=== PATIENT | male | born 1940 | race Caucasian/White ===

== ENCOUNTER 2025-01-30 11:37 | Inpatient (IN) | payer MEDICARE, MEDICAID, SELFPAY ==
[2025-01-30] VITALS (8 sets, daily range): BP systolic 119–156; BP diastolic 49–78; PULSE 76–99; RESP 14–21; TEMP 36.2–36.7; O2SAT 92–100; BMI 27.6; BMI 26.5
--- NOTE | ~2025-01-30 | XR_ITS ---
CLINICAL HISTORY: suspect CHF 2 view chest x-ray Comparison: None Findings: There is central vascular and interstitial prominence. Patchy ground-glass density bilaterally. Trace bilateral effusions. Cardiac and mediastinal contours are within normal limits. No acute fracture. IMPRESSION: Moderate interstitial edema with questionable bilateral infiltrate. This document has been electronically signed by: Mc Harper MD on 01/30/2025 14:07:01
--- NOTE | 2025-01-30 12:23 | PC.NURSE ---
Patient presents from home via EMS. Yemeni speaking. Placed on vehicle monitor technician and NSR noted. Lungs with BBR. Respirations even and non-labored. patient c/o cough. Abdomen soft, non-tender with positive bowel sounds. Positive pedal pulses with LE edema noted.
--- NOTE | 2025-01-30 12:50 | ED.GENADULT ---
HPI - General Adult General Chief complaint: General Medical Stated complaint: SORE THROAT/COUGH WHILE LYING DOWN PER EMS Time Seen by Provider: 01/30/25 12:50 Source: patient Mode of arrival: ambulatory Limitations: no limitations History of Present Illness ED Provider: John Escamilla DO HPI narrative: 84-year-old male with no significant past medical or surgical history (has not seen a primary care provider since before COVID-19) presents to the emergency department due to a nonproductive for the last 3 days without any additional symptoms including chest pain, difficulty breathing, exertional symptoms, abdominal pain, nausea, vomiting, diarrhea was, sore throat, headache or dizziness. The patient denies history of CHF or known murmur. He denies sputum production or hemoptysis. Related Data Home Medications ?Medication ?Instructions ?Recorded ?Confirmed blood sugar diagnostic (OneTouch 08/21/21 Ultra Test strips) lancets (OneTouch UltraSoft 08/21/21 Lancets) Allergies Allergy/AdvReac Type Severity Reaction Status Date / Time No Known Allergies Allergy Verified 01/30/25 12:00 [No Known Allergies*] Review of Systems Review of Systems: Yes all other systems are reviewed and are negative [facility] Social History Social History (System 01/27/25 @ 13:43 by Noris Workman) Advance Directives: No Advance Directives Information Provided: No Physical Exam ED Vital Signs: Vital Signs - 24 hr 01/30/25 11:49 01/30/25 11:56 01/30/25 11:56 Temperature 98.1 F 97.2 F Pulse Rate 99 99 76 Respiratory Rate 18 18 18 Blood Pressure 156/70 H 152/60 H 141/54 H Pulse Oximetry 99 98 93 Oxygen Delivery Method Room Air Room Air Room Air 01/30/25 14:00 01/30/25 14:17 Temperature Pulse Rate 90 Respiratory Rate 14 Blood Pressure 147/58 H 147/58 H Pulse Oximetry 92 Oxygen Delivery Method Room Air BMI result Body Mass Index 27.6 Constitutional: Alert, oriented, speaking in full sentences HEENT: Normocephalic, atraumatic. Moist mucous membranes Eyes: PERRL, EOMI Neck: Supple, nontender , positive JVD Chest: No chest wall tenderness Respiratory: bibasilar crackles on inspiration, no increased work of breathing, 2+ lower extremity edema bilaterally Cardio: Regular rate and rhythm, holosystolic murmur, 2+ radial and DP pulses symmetrically GI: Soft, nondistended, nontender Back: Normal range of motion, nontender Skin: No rash, no lesions Neuro: Alert and oriented to person, place and time, moves all 4 extremities, no focal deficits Extremities: No tenderness, full range of motion Psych: Calm, alert and cooperative, appropriate behavior Medications Administered Discontinued Medications Generic Name Dose Route Start Last Admin Trade Name Dwayneq PRN Reason Stop Dose Admin Furosemide 20 mg 01/30/25 14:05 01/30/25 14:17 Furosemide 20 Mg/2 Ml Vial IVPUSH 01/30/25 14:06 20 mg ONCE ONE Administration Protocol Medical Decision Making Medical Decision Making [facility] Narrative: presenting with a nonproductive cough which may be secondary to a virus. There are no overt findings clinically for bacterial pneumonia. The patient does have clinical findings consistent with CHF exacerbation as well as a murmur on exam. We will further evaluate and likely treat with diuresis. I do not suspect ACS in the absence of exertional symptoms or chest discomfort. Labs and chest x-ray consistent with CHF exacerbation. Discussed with patient who agrees with plan. He will require an echocardiogram and diuresis. Started with 20 mg IV furosemide due to being naive to diuretics and no significant renal impairment. Although uncertain, I do not suspect pneumonia based on symptoms and chest x-ray. Case discussed with hospitalist who agrees with plan for admission. Of note, the patient does have anemia with hemoglobin of 8.4 with no prior for comparison but no reports of blood loss. Admission/Observation Consideration of admission/observation: Escalation of care including admission/observation considered Lab Data [facility] Lab Attestation statement: I reviewed the patient's lab results. 01/30/25 13:28 01/30/25 13:28 Labs: Lab Results 01/30/25 01/30/25 Range/Units 13:14 13:28 WBC 4.8 (4.8-10.8) X10*3/uL RBC 3.29 L (4.60-5.80) X10*6/uL Hgb 8.4 L (14.0-18.0) g/dl Hct 26.8 L (42.0-52.0) % MCV 81.5 (80.0-98.0) fL MCH 25.5 L (27.0-33.0) pg MCHC 31.3 (31.0-36.0) g/dl RDW 13.8 (11.0-16.0) % Plt Count 210 (160-400) X10*3/uL MPV 10.3 (9.4-12.4) fL Immature Gran % (Auto) 0.2 (0.0-0.4) % Neut % (Auto) 84.0 H (45-73) % Lymph % (Auto) 7.3 L (20-40) % [place]oval % (Auto) 7.3 (2-11) % Eos % (Auto) 0.2 (0-4) % Baso % (Auto) 1.0 (0-2) % Lymph # (Auto) 0.4 L (1.2-4.9) X10*3/uL [place] # (Auto) 0.4 (0.1-1.2) X10*3/uL Eos # (Auto) 0.0 (0.0-0.4) X10*3/uL Baso # (Auto) 0.1 (0.0-0.2) X10*3/uL Abs Immat Gran (auto) 0.01 (0.00-0.03) X10*3/uL Absolute Neuts (auto) 4.0 (2.0-8.3) x10*3/uL Absolute Nucleated RBC 0.000 (0.0-0.012) X10*3/uL Nucleated RBC % (auto) 0.0 (0.0-0.2) /100WBC Sodium 138 (135-145) mmol/L Potassium 4.3 (3.3-5.1) mmol/L Chloride 106 (96-108) mmol/L Carbon Dioxide 20 L (22-29) mmol/L Anion Gap 16 (12-20) BUN 24 H (9-16) mg/dL Creatinine 1.05 (0.5-1.4) mg/dL Estim Creat Clear Calc 53.1 Estimated GFR > 60 Random Glucose 117 H (60-115) mg/dL Calcium 8.3 L (8.4-10.2) mg/dL B-Natriuretic Peptide 2225 H (<100) pg/mL Influenza Type A (PCR) NEGATIVE (Negative) Influenza Type B (PCR) NEGATIVE (Negative) RSV RNA Qual (PCR) NEGATIVE (Negative) SARS-CoV-2 RNA (RT-PCR) NEGATIVE (Negative) S. pyogenes GrpA SHANNAN Negative (Negative) Independent Interpretation I performed an independent interpretation of an: EKG and Plain X-Ray (Chest x-ray per my independent interpretation shows bilateral pulmonary edema and small pleural effusions) Interpretation: Normal sinus rhythm at 87 beats per minute, normal axis, borderline prolonged QTC, some subtle ST depression in the anterior lateral leads is similar compared to prior dated 02/26/2018. Discharge Plan Discharge Clinical Impression: CHF exacerbation, Anemia Patient Disposition: Admitted As Inpatient Prescriptions: No Action (DME) OneTouch Ultra Test Strip See Rx Instructions .Route Rx Instructions: As directed-to test blood sugar Once a day (DME) lancets [OneTouch UltraSoft Lancets] Misc See Rx Instructions .Route Rx Instructions: As directed-to test blood sugar Once a day Print Language: Latvian
--- NOTE | 2025-01-30 13:22 | ECG_ITS ---
Test Reason : Dyspnea Blood Pressure : */* mmHG Vent. 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
[2025-01-30 13:28] LABS: IDNOW Serial# 55D5AD1C; Strep A Nucleic Acid Negative (Negative)
[2025-01-30 13:34] LABS: Basophils Absolute Auto 0.1 X10*3/uL (0.0-0.2); Eosinophils Percent Auto 0.2 % (0-4); Hematocrit 26.8 % (42.0-52.0); Hemoglobin 8.4 g/dl (14.0-18.0); Imm Gran Abs Auto 0.01 X10*3/uL (0.00-0.03); Imm Gran Pct Auto 0.2 % (0.0-0.4); Lymphocytes Absolute Auto 0.4 X10*3/uL (1.2-4.9); Lymphocytes Percent Auto 7.3 % (20-40); MANUAL DIFF FLAG NO; Mean Corpuscular HGB Conc 31.3 g/dl (31.0-36.0); Mean Corpuscular Hemoglobin 25.5 pg (27.0-33.0); Mean Corpuscular Volume 81.5 fL (80.0-98.0); Mean Platelet Volume 10.3 fL (9.4-12.4); Monocytes Absolute Auto 0.4 X10*3/uL (0.1-1.2); Monocytes Percent Auto 7.3 % (2-11); Platelet Count 210 X10*3/uL (160-400); Red Blood Count 3.29 X10*6/uL (4.60-5.80); Red Cell Distribution Width 13.8 % (11.0-16.0); White Blood Count 4.8 X10*3/uL (4.8-10.8)
[2025-01-30 13:48] LABS: Anion Gap 16 (12-20); Blood Urea Nitrogen 24 mg/dL (9-16); Calcium 8.3 mg/dL (8.4-10.2); Carbon Dioxide 20 mmol/L (22-29); Chloride 106 mmol/L (96-108); Creatinine Clr Calc Pharmacy 53.1; Estimated Glomerular Filt Rate > 60; Glucose Random 117 mg/dL (60-115); Potassium 4.3 mmol/L (3.3-5.1); Sodium 138 mmol/L (135-145)
[2025-01-30 13:56] LABS: B Type Natriuretic Peptide 2225 pg/mL (<100)
[2025-01-30 14:00] LABS: Influenza A PCR NEGATIVE (Negative); Influenza B PCR NEGATIVE (Negative); Resp Syncy Virus RNA Qual PCR NEGATIVE (Negative); SARS COV2 PCR INHOUSE NEGATIVE (Negative)
[2025-01-30] MEDS: Furosemide 20 MG/2 ML VIAL IVPUSH (14:17)
--- NOTE | 2025-01-30 14:41 | PM.IMHP ---
History of Present Illness Date of Service: 01/30/25 Attending physician on admission: Daphne Hare Chief Complaint: SOB Pt is an 84-year-old primarily Kittitian-speaking male without any known significant PMH, has not followed with a doctor since before COVID, not on home meds who presents to the ED with with increased SOB, MORALES, lower leg edema, and nonproductive cough for the past 3 days. Pt also reports has been unable to lie flat on his back or get sleep during this time as he gets SOB and a dry cough. Especially has SOB/MORALES with going upstairs. Reports can not even walk into the kitchen without having to rest. Pt any known past medical diagnoses or being on any prescription medications. Has not been to see a PCP since before COVID. Denies chest pain/pressure, palpitations. No fever or chills. Denies nausea, vomiting, abdominal pain. ? In the ED pt was tachycardic up to 99, and mildly hypertensive up to 156/70. Labs were significant for normocytic anemia of 8.4/26.8 and BNP 2225. No leukocytosis. Tested negative for flu, COVID, RSV. CXR showed moderate interstitial questionable bilateral infiltrate. EKG demonstrated sinus rhythm with PACs. Pt was treated in the ED with Lasix 20 mg IV. Pt is admitted to the hospital for treatment and further evaluation of new onset CHF. Review of Systems Review of Systems: Yes all other systems are reviewed and are negative [facility] Social History (System 01/27/25 @ 13:43 by Noris Workman) Household Members: Spouse Household Members Other:: 2 Housing: House Do you presently have visiting nurse or other home services: No Patient Tobacco Use Status: Never used Tobacco Have you been hit, kicked, punched, or otherwise hurt by someone within the past year? If so, by whom?: No Do you feel safe in your current relationship?: No Current Relationship Is there a partner from a previous relationship who is making you feel unsafe now?: No Are you made to feel afraid or neglected: No Advance Directives: No Advance Directives Information Provided: No Do you have a plan to hurt others: No Plan Recently lost weight without trying: No Eating poorly because of decreased appetite: No Nutrition Risks: No Nutritional Risk Poor oral hygiene: No Meds Allergies Allergy/AdvReac Type Severity Reaction Status Date / Time No Known Allergies Allergy Verified 01/30/25 12:00 [No Known Allergies*] Home Medications ?Medication ?Instructions ?Recorded ?Confirmed ?Last Taken ?Type No Known Home Meds 01/30/25 01/30/25 Unknown History Physical Exam Vital Signs and Narrative: Vital Signs: Last Vital Signs Temp 97.2 F 01/30/25 11:56 Pulse 90 01/30/25 14:00 Resp 14 01/30/25 14:00 BP 147/58 H 01/30/25 14:17 Pulse Ox 92 01/30/25 14:00 O2 Del Method Room Air 01/30/25 14:00 BMI result Body Mass Index 27.6 General: AOx3, no acute distress Resp: Bibasilar expiratory crackles CVS: S1, S2, RRR GI: +BS, NT, no distention Skin: Warm, dry Neuro: Cranial nerves II-XII grossly intact bilaterally. Motor grossly intact bilaterally Extremities: 2+ bilateral pitting edema Psych: Appropriate affect Results Labs 01/30/25 13:28 01/30/25 13:28 Labs: Laboratory Results - last 24 hr 01/30/25 01/30/25 13:14 13:28 MCV 81.5 MCH 25.5 L MCHC 31.3 RDW 13.8 Plt Count 210 MPV 10.3 Immature Gran % (Auto) 0.2 Neut % (Auto) 84.0 H Lymph % (Auto) 7.3 L [place]ahan % (Auto) 7.3 Eos % (Auto) 0.2 Baso % (Auto) 1.0 Lymph # (Auto) 0.4 L [place] # (Auto) 0.4 Eos # (Auto) 0.0 Baso # (Auto) 0.1 Abs Immat Gran (auto) 0.01 Absolute Neuts (auto) 4.0 Absolute Nucleated RBC 0.000 Nucleated RBC % (auto) 0.0 Anion Gap 16 Estim Creat Clear Calc 53.1 Estimated GFR > 60 Random Glucose 117 H Calcium 8.3 L B-Natriuretic Peptide 2225 H Influenza Type A (PCR) NEGATIVE Influenza Type B (PCR) NEGATIVE RSV RNA Qual (PCR) NEGATIVE SARS-CoV-2 RNA (RT-PCR) NEGATIVE S. pyogenes GrpA SHANNAN Negative Assessment and Plan (1) New onset of congestive heart failure: Status: Acute Plan Pt is an 84-year-old primarily Kittitian-speaking male without any known significant PMH, has not followed with a doctor since before COVID, not on home meds who presents to the ED with with increased SOB, MORALES, lower leg edema, and nonproductive cough for the past 3 days. Pt is admitted to the hospital for treatment and further evaluation of new onset CHF. New onset CHF Pt with SOB, MORALES, LLE, orthopnea x3 days BNP 2225, CXR showing pulmonary edema, 2+ LLE Will treat with Lasix 40mgIV bid Echocardiogram Monitor I/O, daily weights, lytes, creatinine Cardiology consult Monitor on telemetry Elevated troponin Initial troponin 103.8 Pt asymptomatic, EKG non-ischemicc Likely type II in the setting of increased demand Trend troponins Normocytic Anemia Patient's H&H 8.4/26.8, MCV low normal at 81.5 No prior labs on record, unclear if at baseline Will check iron studies, B12, and folate Follow CBC Full Code Attending:?Dr. Hare DVT Prophylaxis: Lovenox Pt will require a hospitalization of at least two nights for treatment of?new onset CHF requiring IV diuretics, close monitoring of labs and cardiac function, and specialist consultation with cardiology. Quality Stroke Does the patient have a stroke diagnosis?: No VTE Prior VTE?: No VTE Risk Level:: Medical - moderate - high VTE Device Contraindication: Treatment Not Indicated VTE Drug Contraindication: N/A - Med Ordered
--- NOTE | 2025-01-30 16:32 | PHA.MEDREC ---
Addendum entered by Julienne Mclean RPh 01/31/25 06:57: REVIEWED by [facility] Original Note: Pharmacy Consult ? Medication Reconciliation Pharmacy has completed the medication reconciliation.
[2025-01-30] MEDS: Furosemide 40 MG/4 ML VIAL IVPUSH (18:16)
[2025-01-30] MEDS: Enoxaparin Sodium 40 MG/0.4 ML SYRINGE SUBCUT (18:16)
[2025-01-30 20:51] LABS: Troponin-I High Sensitivity 103.8 ng/L (<3.5-35.0)
[2025-01-30 22:41] LABS: Troponin-I High Sensitivity 113.8 ng/L (<3.5-35.0)
[2025-01-31] VITALS (7 sets, daily range): BP systolic 116–132; BP diastolic 51–65; PULSE 76–93; RESP 16–18; TEMP 36.4–37.5; O2SAT 96–99; BMI 26.6
[2025-01-31 06:15] LABS: Hematocrit 26.2 % (42.0-52.0); Hemoglobin 8.1 g/dl (14.0-18.0); Mean Corpuscular HGB Conc 30.9 g/dl (31.0-36.0); Mean Corpuscular Hemoglobin 25.1 pg (27.0-33.0); Mean Corpuscular Volume 81.1 fL (80.0-98.0); Mean Platelet Volume 9.7 fL (9.4-12.4); Platelet Count 210 X10*3/uL (160-400); Red Blood Count 3.23 X10*6/uL (4.60-5.80); Red Cell Distribution Width 13.8 % (11.0-16.0)
[2025-01-31 06:31] LABS: Anion Gap 15 (12-20); Blood Urea Nitrogen 28 mg/dL (9-16); Calcium 8.2 mg/dL (8.4-10.2); Carbon Dioxide 24 mmol/L (22-29); Chloride 105 mmol/L (96-108); Creatinine Clr Calc Pharmacy 39.8; Estimated Glomerular Filt Rate 48; Glucose Random 114 mg/dL (60-115); Iron 17 mcg/dL (45-160); Magnesium 1.9 mg/dL (1.6-2.6); Percent Iron Saturation 5 % (15-50); Potassium 3.7 mmol/L (3.3-5.1); Sodium 140 mmol/L (135-145); Total Iron Binding Capacity 317 mcg/dL (228-428); Unsaturated Iron Binding 300 ug/dL
[2025-01-31 06:39] LABS: Troponin-I High Sensitivity 93.9 ng/L (<3.5-35.0)
[2025-01-31 07:07] LABS: Folate 10.7 ng/mL (> or = 4.0); Vitamin B12 345 pg/mL (200-900)
[2025-01-31 08:34] LABS: B Type Natriuretic Peptide 2306 pg/mL (<100)
--- NOTE | 2025-01-31 09:15 | HO.PM.IMPN ---
Subjective Subjective Date of Service: 01/31/25 Interval History: Pt seen and evaluated in his room this morning Reports feeling better, breathing better Less SOB with ambulation Improvement in LLE No acute events overnight Denies chest pain/pressure Review of Systems Review of Systems: Yes all other systems are reviewed and are negative Physical Exam Vital Signs: Vital Signs: Last Vital Signs Temp 98.2 F 01/31/25 07:36 Pulse 76 01/31/25 07:36 Resp 18 01/31/25 07:36 BP 119/53 L 01/31/25 07:36 Pulse Ox 96 01/31/25 07:36 O2 Del Method Room Air 01/31/25 07:36 BMI result Body Mass Index 26.6 General: AOx3, no acute distress ENT: Monocular left esotropia, EOM intact Resp: Bibasilar expiratory crackles CVS: S1, S2, RRR GI: +BS, NT, no distention Skin: Warm, dry Neuro: Cranial nerves II-XII grossly intact bilaterally. Motor grossly intact bilaterally Extremities: 2+ bilateral pitting edema though improved, skin less taut Psych: Appropriate affect Objective Data Active Medications Acetaminophen (Acetaminophen 325 Mg Tablet) 650 mg PO Q6H PRN PRN Reason: Pain, Mild 1-3,fever,headache Calcium Carbonate (Calcium Carbonate 750 Mg Tab.Chew) 750 mg PO Q4H PRN PRN Reason: Heartburn Enoxaparin Sodium (Enoxaparin Sodium 40 Mg/0.4 Ml Syringe) 40 mg SUBCUT Q24H [facility] Last Admin: 01/30/25 18:16 Dose: 40 mg Documented By: VLADIMIR Furosemide (Furosemide 40 Mg/4 Ml Vial) 20 mg IVPUSH BID@0900,1800 [facility]; Protocol Magnesium Hydroxide (Milk Of Magnesia 30 Ml Oral.Susp) 30 ml PO DAILY PRN PRN Reason: Constipation Melatonin (Melatonin 3 Mg Tablet) 6 mg PO BEDTIME PRN PRN Reason: Insomnia Sodium Chloride (0.9 % Sodium Chloride Flush 3 Ml Syringe) 3 ml IVFLUSH QSHIFT [facility] Last Admin: 01/31/25 01:10 Dose: Not Given Documented By: STEVE Non-Admin Reason: Previously Administered Labs 01/31/25 05:55 01/31/25 05:55 Labs: Laboratory Results - last 24 hr 01/30/25 01/30/2501/31/25 13:14 13:28 05:55 MCV 81.5 81.1 MCH 25.5 L 25.1 L MCHC 31.3 30.9 L RDW 13.8 13.8 Plt Count 210 210 MPV 10.3 9.7 Immature Gran % (Auto) 0.2 Neut % (Auto) 84.0 H Lymph % (Auto) 7.3 L [place] % (Auto) 7.3 Eos % (Auto) 0.2 Baso % (Auto) 1.0 Lymph # (Auto) 0.4 L [place] # (Auto) 0.4 Eos # (Auto) 0.0 Baso # (Auto) 0.1 Abs Immat Gran (auto) 0.01 Absolute Neuts (auto) 4.0 Absolute Nucleated RBC 0.000 0.000 Nucleated RBC % (auto) 0.0 0.0 Anion Gap 16 15 Estim Creat Clear Calc 53.1 39.8 Estimated GFR > 60 48 Random Glucose 117 H 114 Calcium 8.3 L 8.2 L Magnesium 1.9 Iron 17 L TIBC 317 % Saturation 5 L Unsat Iron Binding 300 B-Natriuretic Peptide 2225 H 2306 H Vitamin B12 345 Folate 10.7 Influenza Type A (PCR) NEGATIVE Influenza Type B (PCR) NEGATIVE RSV RNA Qual (PCR) NEGATIVE SARS-CoV-2 RNA (RT-PCR) NEGATIVE S. pyogenes GrpA SHANNAN Negative Assessment and Plan (1) New onset of congestive heart failure: Status: Acute Assessment and Plan: Pt is an 84-year-old primarily Azerbaijani-speaking male without any known significant PMH, has not followed with a doctor since before COVRI, not on home meds who presents to the ED with with increased SOB, MORALES, lower leg edema, and nonproductive cough for the past 3 days. Pt is admitted to the hospital for treatment and further evaluation of new onset CHF. New onset CHF BNP 2225 --> 2306 LLE improving, still 2+ but skin less taut Creatinine increased to 1.40 Reduce Lasix to 20 mg IV bid Echocardiogram Monitor I/O, daily weights, lytes, creatinine Cardiology consult Monitor on telemetry Elevated creatinine Creatinine increased 1.05-->1.40 Will reduce Lasix to 20mg IV bid Follow creatinine Elevated troponins Trops elevated but flat: 103.8-->113.8-->93.9 Pt asymptomatic, no CP, EKG non-ischemicc Likely type II in the setting of increased demand Normocytic Anemia Patient's H&H 8.4/26.8, MCV low normal at 81.5 Today stable at 8.1/26.2 No prior labs on record, unclear if at baseline Iron low at 17, TIBC 317, sat %5 B12 and folate WNL Check ferritn, start iron supplementation Follow CBC Full Code Attending:?Dr. Hare DVT Prophylaxis: Lovenox Pt will require a hospitalization of at least two nights for treatment of?new onset CHF requiring IV diuretics, close monitoring of labs and cardiac function, and specialist consultation with cardiology. Quality Stroke Does the patient have a stroke diagnosis?: No VTE Prior VTE?: No VTE Risk Level:: Medical - moderate - high VTE Device Contraindication: Treatment Not Indicated VTE Drug Contraindication: N/A - Med Ordered
--- NOTE | 2025-01-31 09:16 | MHC.CM.PN ---
IMM 01/31/25, Pt is Egyptian speaking, he can speak and understand some Kinyarwanda. He lives with his , He does not have a PCP, brochure given for [facility] providers. He does not use DME. His family will transport him home at DC. DCP: home, self care. CM to follow for DC needs.
[2025-01-31] MEDS: Furosemide 40 MG/4 ML VIAL 20 MG IVPUSH ×2 (09:44→17:30)
[2025-01-31] MEDS: 0.9 % Sodium Chloride Flush 3 ML SYRINGE IVFLUSH ×2 (09:44→17:30)
[2025-01-31 10:08] LABS: Ferritin 155 ng/mL (20-250)
[2025-01-31] MEDS: guaiFENesin DM 200/20/10 ML 10 ML SYRUP PO (12:07)
--- NOTE | 2025-01-31 12:55 | PM.CNCAR ---
History of Present Illness History of Present Illness Date of Service: 01/31/25 Requesting physician: Eulogio Brar Consult reason: congestive heart failure Chief complaint: new onset CHF Narrative: I was consulted to see Kenroy in cardiology consultation today for new onset congestive heart failure. He is 84-year-old male who has not seen a primary care physician since COV as he was advised the same. He is currently not on any medications at home. He came to the hospital with progressively increasing exertional shortness of breath with shortness of breath with minimal exertion, not able to lay flat with symptoms shortness of breath as well as cough for the last 2 weeks and leg swelling over the last 3 days. He therefore presented emergency room. He was noted with new congestive heart failure with markedly elevated BNP as well as findings consistent on chest x-ray with pulmonary edema. EKG shows no acute ischemic changes. Troponins were mildly elevated predominantly flat. Patient was given IV diuresis with good overall negative output and feels better although continues to have cough laying down and generally has a dry cough. No fever or chills. No chest pain. No prolonged palpitation irregular heartbeat. Was noted to be hypertensive initially on presentation but blood pressures now settled down. Review of Systems Constitutional: Constitutional: Reports no additional constitutional complaints Eyes: Eyes: Reports no additional eye complaints Cardiovascular: Cardiovascular: Denies chest pain, Reports leg edema, Denies lightheadedness, Denies Loss of Consciousness, Denies palpitations, Reports dyspnea on exertion and Reports orthopnea Respiratory: Respiratory: Reports no additional respiratory complaints and Reports dyspnea on exertion Genitourinary: Genitourinary: Reports no additional male genitourinary complaints Musculoskeletal: Musculoskeletal: Reports no additional musculoskeletal complaints Integumentary/Breasts: Skin/Breast: Reports system reviewed and no additional complaints, except as docu Neurologic: Reports system reviewed and no additional complaints, except as documented Endocrine: Endocrine: Denies palpitations [facility] Social History Social History Household Members: Spouse Household Members Other:: 2 Housing: House Do you presently have visiting nurse or other home services: No Comment: pt refusing alarms, camera in room Patient Tobacco Use Status: Never used Tobacco Currently Displaying Signs/Symptoms of Drug Intoxication Withdrawal: No Have you been hit, kicked, punched, or otherwise hurt by someone within the past year? If so, by whom?: No Do you feel safe in your current relationship?: No Current Relationship Is there a partner from a previous relationship who is making you feel unsafe now?: No Are you made to feel afraid or neglected: No Advance Directives: No Advance Directives Information Provided: No Do you have a plan to hurt others: No Plan Recently lost weight without trying: No Eating poorly because of decreased appetite: No Nutrition Risks: No Nutritional Risk Poor oral hygiene: No service: No Meds Allergies Allergy/AdvReac Type Severity Reaction Status Date / Time No Known Allergies Allergy Verified 01/30/25 12:00 [No Known Allergies*] Active Medications: Current Medications Acetaminophen (Acetaminophen 325 Mg Tablet) 650 mg PO Q6H PRN PRN Reason: Pain, Mild 1-3,fever,headache Calcium Carbonate (Calcium Carbonate 750 Mg Tab.Chew) 750 mg PO Q4H PRN PRN Reason: Heartburn Enoxaparin Sodium (Enoxaparin Sodium 40 Mg/0.4 Ml Syringe) 40 mg SUBCUT Q24H [facility] Last Admin: 01/30/25 18:16 Dose: 40 mg Furosemide (Furosemide 40 Mg/4 Ml Vial) 20 mg IVPUSH BID@0900,1800 [facility]; Protocol Last Admin: 01/31/25 09:44 Dose: 20 mg Guaifenesin/Dextromethorphan (Guaifenesin Dm 200/20/10 Ml 10 Ml Syrup) 10 ml PO Q4H PRN PRN Reason: Cough Last Admin: 01/31/25 12:07 Dose: 10 ml Magnesium Hydroxide (Milk Of Magnesia 30 Ml Oral.Susp) 30 ml PO DAILY PRN PRN Reason: Constipation Melatonin (Melatonin 3 Mg Tablet) 6 mg PO BEDTIME PRN PRN Reason: Insomnia Sodium Chloride (0.9 % Sodium Chloride Flush 3 Ml Syringe) 3 ml IVFLUSH QSHIFT [facility] Last Admin: 01/31/25 09:44 Dose: 3 ml Spironolactone (Spironolactone 25 Mg Tablet) 12.5 mg PO DAILY [facility]; Protocol Home Medications ?Medication ?Instructions ?Recorded ?Confirmed ?Last Taken ?Type No Known Home Meds 01/30/25 01/30/25 Unknown History Physical Exam Vital Signs: Vital Signs: Last Vital Signs Temp 97.6 F 01/31/25 11:34 Pulse 93 01/31/25 11:34 Resp 18 01/31/25 11:34 BP 116/59 L 01/31/25 11:34 Pulse Ox 99 01/31/25 11:34 O2 Del Method Room Air 01/31/25 11:34 BMI result Body Mass Index 26.6 Const: General: cooperative, alert, awake and in distress mild and respiratory Nutritional Appearance: average body habitus Orientation/consciousness: patient oriented x3 HEENT: Head: Yes normocephalic and Yes atraumatic Neck: Neck: Yes trachea midline, Yes supple and Yes JVD Resp: Effort & Inspection: normal respiratory effort Auscultation: crackles Cardio: Jugular venous distension: JVD Rate: regular rate Rhythm: regular rhythm Heart sounds: S1 normal heart sound present, S2 normal heart sound present, no click, no gallops and no murmurs GI: Auscultation: normal bowel sounds Skin: General skin exam: no rashes or lesions noted Neuro: General: patient oriented x3 and no focal motor deficits Extrem: General: No clubbing, No cyanosis and Yes edema Objective Labs and Meds 01/31/25 05:55 01/31/25 05:55 Lab results: Laboratory Results - last 24 hr 01/30/25 01/30/25 01/30/25 13:14 13:28 20:00 WBC 4.8 RBC 3.29 L Hgb 8.4 L Hct 26.8 L MCV 81.5 MCH 25.5 L MCHC 31.3 RDW 13.8 Plt Count 210 MPV 10.3 Immature Gran % (Auto) 0.2 Neut % (Auto) 84.0 H Lymph % (Auto) 7.3 L Amador % (Auto) 7.3 Eos % (Auto) 0.2 Baso % (Auto) 1.0 Lymph # (Auto) 0.4 L Amador # (Auto) 0.4 Eos # (Auto) 0.0 Baso # (Auto) 0.1 Abs Immat Gran (auto) 0.01 Absolute Neuts (auto) 4.0 Absolute Nucleated RBC 0.000 Nucleated RBC % (auto) 0.0 Sodium 138 Potassium 4.3 Chloride 106 Carbon Dioxide 20 L Anion Gap 16 BUN 24 H Creatinine 1.05 Estim Creat Clear Calc 53.1 Estimated GFR > 60 Random Glucose 117 H Calcium 8.3 L Magnesium Iron TIBC % Saturation Unsat Iron Binding Ferritin Troponin I High Sens 103.8 H* B-Natriuretic Peptide 2225 H Vitamin B12 Folate Influenza Type A (PCR) NEGATIVE Influenza Type B (PCR) NEGATIVE RSV RNA Qual (PCR) NEGATIVE SARS-CoV-2 RNA (RT-PCR) NEGATIVE S. pyogenes GrpA SHANNAN Negative 01/30/25 01/31/25 22:02 05:55 WBC 4.0 L RBC 3.23 L Hgb 8.1 L Hct 26.2 L MCV 81.1 MCH 25.1 L MCHC 30.9 L RDW 13.8 Plt Count 210 MPV 9.7 Immature Gran % (Auto) Neut % (Auto) Lymph % (Auto) Amador % (Auto) Eos % (Auto) Baso % (Auto) Lymph # (Auto) Amador # (Auto) Eos # (Auto) Baso # (Auto) Abs Immat Gran (auto) Absolute Neuts (auto) Absolute Nucleated RBC 0.000 Nucleated RBC % (auto) 0.0 Sodium 140 Potassium 3.7 Chloride 105 Carbon Dioxide 24 Anion Gap 15 BUN 28 H Creatinine 1.40 Estim Creat Clear Calc 39.8 Estimated GFR 48 Random Glucose 114 Calcium 8.2 L Magnesium 1.9 Iron 17 L TIBC 317 % Saturation 5 L Unsat Iron Binding 300 Ferritin 155 Troponin I High Sens 113.8 H* 93.9 H B-Natriuretic Peptide 2306 H Vitamin B12 345 Folate 10.7 Influenza Type A (PCR) Influenza Type B (PCR) RSV RNA Qual (PCR) SARS-CoV-2 RNA (RT-PCR) S. pyogenes GrpA SHANNAN Assessment and Plan (1) New onset of congestive heart failure: Status: Acute New onset CHF, decompensated. Unclear whether this is systolic. EKGs suggestive of possible inferior Q-waves. Systolic dysfunction is likely. At this point time I would continue with IV diuresis. Blood pressure is on the softer side. Continue strict intake and output chart. Continue to monitor BNP and BNP and electrolytes. Add low-dose spironolactone 12.5 mg to his regimen. Echocardiogram tomorrow to further guide treatment. Patient also noted to be anemic of unclear etiology. Consider anemia workup as well. Depending on echocardiogram may need further ischemic workup. Will follow with you Procedures Date of Service Date of Service: 01/31/25
[2025-01-31] MEDS: Spironolactone 25 MG TABLET 12.5 MG PO (14:01)
[2025-02-01 03:33] VITALS: BP 112/53; PULSE 70; RESP 18; TEMP 37.1; O2SAT 97
[2025-02-01 06:00] VITALS: BMI 25.8
[2025-02-01 06:51] LABS: B Type Natriuretic Peptide 2025 pg/mL (<100)
[2025-02-01 06:53] LABS: Anion Gap 14 (12-20); Blood Urea Nitrogen 31 mg/dL (9-16); Calcium 8.6 mg/dL (8.4-10.2); Carbon Dioxide 26 mmol/L (22-29); Chloride 104 mmol/L (96-108); Creatinine Clr Calc Pharmacy 38.7; Estimated Glomerular Filt Rate 47; Glucose Random 110 mg/dL (60-115); Potassium 3.9 mmol/L (3.3-5.1); Sodium 140 mmol/L (135-145)
--- NOTE | 2025-02-01 07:00 | CA_ITS ---
Transthoracic Echocardiogram Patient (Last, First, Middle): Kenroy Ness, Gender: Male Date of : 1940 Age: 84 Procedure Date: 02/01/2025 Procedure Type: Transthoracic Echocardiogram [place] [facility] [place] Height: 177.8 cm Weight: 81.65 kg BSA: 2.00 m2 Heart Rate: bpm BP: 112 / 53 mmHg Director Of [facility]: Referring MD: Eulogio DOLL Symptoms: New onset CHF Study Quality: Fair ECG Rhythm: Atrial Fibrillation Conclusions: - Normal left ventricular cavity size. There is severely increased left ventricular wall thickness. The left ventricular systolic function is mildly decreased. The visually estimated ejection fraction is between 40-45%. - Elevated filling pressures. - The apex, apical inferior, mid inferior, and apical septum segments are akinetic. - There is severe aortic valve stenosis. - Moderate pulmonary hypertension is present. Findings Procedure Information Contrast agent, definity, is being given per protocol without apparent complications. Left Ventricle Normal left ventricular cavity size. There is severely increased left ventricular wall thickness. The left ventricular systolic function is mildly decreased. The visually estimated ejection fraction is between 40-45%. There is evidence of regional wall motion abnormalities. Abnormal diastolic function is noted. Spectral Doppler is indicative of a pseudonormal filling pattern. Elevated filling pressures. Wall Motion Rest Echo Findings The apex, apical inferior, mid inferior, and apical septum segments are akinetic. Right Ventricle Normal right ventricular cavity size and systolic function. Atria The left atrium is severely dilated. The right atrium is normal in size. Aortic Valve There is severe calcification of the aortic valve. There is severe aortic valve stenosis. The peak aortic velocity is 5.30 m/s with a calculated peak gradient of 112 mmHg. The mean gradient is 67 mmHg. The aortic valve area is 0.85 cm2. There is mild to moderate aortic valve regurgitation. Mitral Valve The mitral valve appears normal. There is trace mitral valve regurgitation. There is no mitral valve stenosis. Pulmonic Valve The pulmonic valve is likely normal. Tricuspid Valve Normal tricuspid valve structure. There is trace tricuspid valve regurgitation. The right ventricular systolic pressure is 50 mmHg. Normal right atrial pressure. Moderate pulmonary hypertension is present. Great Vessels All visible segments of the aorta are normal in size. Venous The inferior vena cava is normal in size and collapses greater than 50% with inspiration. Pericardium/Pleural There is no evidence of pericardial effusion. Prior Study Comparison No prior study available for comparison. Measurements 2D Linear Measurements IVSd: 1.53 0.6-0.9/0.6-1.0 cm LVIDd: 4.88 3.9-5.3/4.2-5.9 cm LVIDd Index: 2.44 2.4-3.2/2.2-3.1 cm/m2 LVIDs: 3.09 2.0-3.6 cm LVPWd: 1.51 0.7-1.1 cm Ao Root: 3.20 2.1-3.5 cm LA Diam: 5.50 2.7-3.8/3.0-4.0 cm LAIDs Index: 2.75 1.5-2.3 cm/m2 LV Mass: 395.80 67-162/88-224 g LV Mass Index: 197.90 43-95/49-115 g/m2 LVOT Diam: 2.00 3.0+(-)1.3 cm 2D Systolic Function EF 4C: 32.00 >55% EF 2C: 27.60 >55% EF BiP: 31.10 >55% Mitral Valve MV VTI: 0.65 MV Pk Ashok: 1.39 MV Mn Ashok: 0.81 MV Pk Grad: 8.00 MV Mn Grad: 3.00 MV Pk E: 1.34 MV PK A: 1.23 MV Decel Time: 197.00 E/A: 1.10 E'Lateral: 9.46 E'Medial: 5.33 E/E' Med: 25.10 E/E' Lat: 14.20 PHT: 58.00 MVA PHT: 3.79 MVA Continuity: 1.73 Decel [place]: 6.80 Aortic Valve AoV Pk Ashok: 5.30 AoV Mn Ashok: 3.54 AoV VTI: 1.24 AoV Pk Grad: 112.00 Aov Mn Grad: 67.00 BORA Cont.VTI: 0.85 AI Pk Ashok: 3.87 AI [place]: 4.62 LVOT LVOT Pk Ashok: 1.36 LVOT Mn Ashok: 0.94 LVOT VTI: 0.36 LVOT Pk Grad: 7.00 LVOT Mn Grad: 4.00 LVOT Diam: 2.00 LVOT Area: 3.14 Diastolic Function MV Pk E: 1.34 MV Pk A: 1.23 E/A: 1.10 E'Medial: 5.33 E/E' Med: 25.10 E' Laterial: 9.46 E/E' Lat: 14.20 Tricuspid Valve TR Pk Ashok: 3.41 TR Pk Grad: 47.00 RA Press: 3.00 RVSP: 50.00 Great Vessels Aorta Ao Root-2D: 3.20 2.0-3.7 cm Ao Asc: 3.30 2.1-3.4 cm Pulmonary Valve PV Pk Ashok: 1.32 Peak PV Grad: 7.00 Updated in Other Vendor System with Status of Final Srini Nunes MD electronically signed on 02/01/2025 1:31:00 PM with status of Final
[2025-02-01 07:23] VITALS: BP 126/65; PULSE 76; RESP 17; TEMP 36.3; O2SAT 98
[2025-02-01] MEDS: Spironolactone 25 MG TABLET 12.5 MG PO (09:46)
[2025-02-01] MEDS: Furosemide 40 MG/4 ML VIAL 20 MG IVPUSH (09:46)
[2025-02-01] MEDS: 0.9 % Sodium Chloride Flush 3 ML SYRINGE IVFLUSH (09:52)
[2025-02-01 11:19] VITALS: BP 130/68; PULSE 88; RESP 18; TEMP 36.9; O2SAT 98
--- NOTE | 2025-02-01 12:42 | MHC.CM.PN ---
EMR REVIEWED, PT W/NEW ONSET CHF, PER HOSPITALIST PT WILL NEED CONTINUED DIURESIS, NO PLAN FOR DC AT THIS TIME, CM WILL CONT TO FOLLOW DC NEEDS.
--- NOTE | 2025-02-01 13:31 | P.PNCA_ITS ---
Subjective Subjective Date of Service: 02/01/25 Interval history: Seen examined at bedside. He is saying he is feeling better. Echocardiography reviewed showing EF 40-45% with apical akinesis, mid to distal inferior and apical septal akinesis. Severe aortic valve stenosis present. Physical Exam Vital Signs: Last Vital Signs Temp 98.5 F 02/01/25 11:19 Pulse 88 02/01/25 11:19 Resp 18 02/01/25 11:19 BP 130/68 02/01/25 11:19 Pulse Ox 98 02/01/25 11:19 O2 Del Method Room Air 02/01/25 11:19 BMI result Body Mass Index 25.8 GENERAL APPEARANCE: in no acute distress, pleasant. NECK: no carotid bruit, no jugular venous distention. SKIN: no suspicious lesions, warm and dry. HEART: ejection systolic murmur aortic area with absent 2nd heart sound. LUNGS: clear to auscultation bilaterally. ABDOMEN: soft, nontender. EXTREMITIES: 1+ edema. PERIPHERAL PULSES: equal. NEUROLOGIC: No gross deficits, AAO X 3 Objective Labs and Meds 01/31/25 05:55 02/01/25 05:50 Lab results: Laboratory Results - last 24 hr 02/01/25 05:50 Sodium 140 Potassium 3.9 Chloride 104 Carbon Dioxide 26 Anion Gap 14 BUN 31 H Creatinine 1.44 H Estim Creat Clear Calc 38.7 Estimated GFR 47 Random Glucose 110 Calcium 8.6 B-Natriuretic Peptide 2025 H Progress Note: A&P Assessment and plan (1) New onset of congestive heart failure: Status: Acute (2) Severe aortic valve stenosis: Status: Acute Plan 84 year gentleman with new onset congestive heart failure. He underwent echocardiography which is showing apical, apical septal and mid to distal inferior akinesis with EF 40 45% he also has severe aortic valve stenosis. Suspect underlying coronary disease along with aortic valve stenosis as potential reason for CHF in the gentleman. Diuresed and overall clinically improving. He is adamant that he wants to go home. I have explained to him that his symptoms are related to aortic valve stenosis and he should consider further workup for that. He is [employer] and wishes to see a [employer] used car lot attendant. I will refer him to Cardiology at [facility]. Overall he has improved and should be reasonable to discharge him. I think he should be on baby aspirin given the fact that he has wall motion abnormalities and likely underlying coronary disease. Thank you for allowing me to participate in the care of your patient. Please feel free to contact me if you have any questions. Time Spent With Patient Time: Total time managing care of this patient today ____ minutes. Progress Note: Quality Stroke Does the patient have a stroke diagnosis?: No Procedures Date of Service Date of Service: 02/01/25
[2025-02-01 15:28] VITALS: BP 117/71; PULSE 68; RESP 18; TEMP 36.4; O2SAT 96
--- NOTE | 2025-02-01 15:48 | PM.DS ---
DS: Providers Provider Date of Service: 02/01/25 Date of admission: 01/30/25 14:41 Date of discharge: 02/01/25 Primary care physician: None Physician Consults: 01/30/25 14:43 Consult to Cardiology Routine Consulting Provider: [facility] Reason for consultation: New onset CHF DS: Diagnosis Discharge Diagnosis (1) New onset of congestive heart failure: Status: Acute (2) Severe aortic valve stenosis: Status: Acute DS: Summary Hospital Course Hospital Course: admission hpi Chief Complaint: SOB Pt is an 84-year-old primarily Kuwaiti-speaking male without any known significant PMH, has not followed with a doctor since before COVID, not on home meds who presents to the ED with with increased SOB, MORALES, lower leg edema, and nonproductive cough for the past 3 days. Pt also reports has been unable to lie flat on his back or get sleep during this time as he gets SOB and a dry cough. Especially has SOB/MORALES with going upstairs. Reports can not even walk into the kitchen without having to rest. Pt any known past medical diagnoses or being on any prescription medications. Has not been to see a PCP since before COVID. Denies chest pain/pressure, palpitations. No fever or chills. Denies nausea, vomiting, abdominal pain. ? In the ED pt was tachycardic up to 99, and mildly hypertensive up to 156/70. Labs were significant for normocytic anemia of 8.4/26.8 and BNP 2225. No leukocytosis. Tested negative for flu, COVID, RSV. CXR showed moderate interstitial questionable bilateral infiltrate. EKG demonstrated sinus rhythm with PACs. Pt was treated in the ED with Lasix 20 mg IV. Pt is admitted to the hospital for treatment and further evaluation of new onset CHF. hospital course: Patient was admitted for management of heart failure, and treated with Iv diuretics and aldactone, further testing with echocardiogram showed an EF of 40 to 45 % and severe aortic stenosis. He symptoms are much better today, and would like to go home and prefer to follow up with [facility] horizontal boring mill set up operator at [facility] rather than a horizontal boring mill set up operator at [facility], he advised to sought the help of his PCP to locate a horizontal boring mill set up operator. He will be discharged with ASA 81 mg daily, Lasix 40 mg twice daily, and Aldactone 12.5 mg daily Time Attestation Discharge Coordination Time (in mins): 45 Quality: Safe Use of Opioids Does Pt have an Active Cancer Diagnosis on the Problem List?: No Quality: Stroke Does the patient have a stroke diagnosis?: No Physical Exam Vital Signs: Vital Signs: Last Vital Signs Temp 97.5 F 02/01/25 15:28 Pulse 68 02/01/25 15:28 Resp 18 02/01/25 15:28 BP 117/71 02/01/25 15:28 Pulse Ox 96 02/01/25 15:28 O2 Del Method Room Air 02/01/25 15:28 BMI result Body Mass Index 25.8 General: AO X 3, no acute distress Resp: CTA bilateral CVS: S1,S2,RRR, murmur, 2+ leg edema GI: +BS, NT, no distention Skin: No rash Neuro: motor grossly intact Psych: appropriate affect DS: Data Data Completed and Pending Labs on day of discharge: Laboratory Results - last 24 hr 02/01/25 05:50 Sodium 140 Potassium 3.9 Chloride 104 Carbon Dioxide 26 Anion Gap 14 BUN 31 H Creatinine 1.44 H Estim Creat Clear Calc 38.7 Estimated GFR 47 Random Glucose 110 Calcium 8.6 B-Natriuretic Peptide 2024 H Discharge Plan Discharge Anticipated Discharge Date/Time: 02/01/25 15:45 Patient Disposition: Home, Self-Care Discharge Diagnosis: Aortic Stenosis, Heart failure Referrals: Gorge Tim MD [Physician] - 1 Week (FOLLOW-UP FOR CONGESTIVE HEART FAILURE) Physician,Nancie Bal [Physician] - 1 Week Discharge Medications: New aspirin 81 mg capsule 81 mg PO DAILY Qty: 180 0RF spironolactone 25 mg Tablet 12.5 mg PO DAILY Qty: 90 0RF Protocol: Hold for SBP< HOLD for SBP < : 90 furosemide [Lasix] 40 mg tablet 40 mg PO BID Qty: 180 0RF No Action No Known Home Meds Discharge Orders: Discharge Order (Routine); Ordered 02/01/25 Ordered By: Aly Richards Diet: Advance to usual diet Activity on Discharge: As tolerated Stand Alone Forms: Patient Portal Discharge page Print Language: Korean Care Plan Goals: recovery from heart failure and work up for aortic stenosis Health Concerns: heart failure aortic stenosis Plan of Treatment: take baby aspirin daily take Lasix and aldactone as recommended follow up with a heart doctor Assessment: see above
== END 2025-02-01 16:50 | disposition home or self-care (01) | DRG 293 ==
LOC: HO.ED 14:56 → HO.EDOVER 15:03 → HO.IMC 17:07
PROVIDERS: Admitting Provider Student in an Organized Health Care Education/Training Program; Emergency Provider Emergency Medicine; Visit Provider Internal Medicine
DX: I11.0 Hypertensive heart disease with heart failure (principal); I50.9 Heart failure, unspecified; I35.0 Nonrheumatic aortic (valve) stenosis; I49.1 Atrial premature depolarization; D64.9 Anemia, unspecified; I25.10 Atherosclerotic heart disease of native coronary artery without angina pectoris; Z20.822 Contact with and (suspected) exposure to COVID-19; Z79.899 Other long term (current) drug therapy
CPT/HCPCS: 0241U; 36415; 71046; 80048; 82607; 82728; 82746; 83540; 83735; 83880; 84484; 85025; 85027; 87651; 93005; 93306; 99285; J1650; J1938; Q9957

== ENCOUNTER → 2025-01-30 13:22 | Outpatient (BNV) | payer MEDICARE, MEDICAID, SELFPAY | PROVIDERS: Admitting Provider Student in an Organized Health Care Education/Training Program; Emergency Provider Emergency Medicine; Visit Provider Internal Medicine Cardiovascular Disease | DX: I49.1 Atrial premature depolarization (principal); I25.2 Old myocardial infarction | CPT/HCPCS: 93010 ==

== ENCOUNTER → 2025-01-30 13:23 | Outpatient (BNV) | payer MEDICARE, MEDICAID, SELFPAY | PROVIDERS: Emergency Provider Emergency Medicine; Visit Provider Radiology Vascular & Interventional Radiology | DX: J81.0 Acute pulmonary edema (principal) | CPT/HCPCS: 71046 ==

== ENCOUNTER 2025-01-30 14:41 | Outpatient (BNV) | payer MEDICARE, MEDICAID, SELFPAY | END 2025-02-01 07:00 | PROVIDERS: Admitting Provider Student in an Organized Health Care Education/Training Program; Emergency Provider Emergency Medicine; Visit Provider Internal Medicine Cardiovascular Disease | DX: I35.2 Nonrheumatic aortic (valve) stenosis with insufficiency (principal); I34.0 Nonrheumatic mitral (valve) insufficiency; I27.20 Pulmonary hypertension, unspecified | CPT/HCPCS: 93306 ==

== ENCOUNTER → 2025-01-30 14:41 | Outpatient (BNV) | payer MEDICARE, MEDICAID, SELFPAY | PROVIDERS: Admitting Provider Student in an Organized Health Care Education/Training Program; Emergency Provider Emergency Medicine; Visit Provider Internal Medicine Cardiovascular Disease | DX: I50.9 Heart failure, unspecified (principal) | CPT/HCPCS: 99222 ==

== ENCOUNTER → 2025-01-30 14:41 | Outpatient (BNV) | payer MEDICARE, MEDICAID, SELFPAY | PROVIDERS: Admitting Provider Student in an Organized Health Care Education/Training Program; Emergency Provider Emergency Medicine; Visit Provider Student in an Organized Health Care Education/Training Program | DX: I50.9 Heart failure, unspecified (principal); I35.0 Nonrheumatic aortic (valve) stenosis | CPT/HCPCS: 99223; 99232; 99239 ==

== ENCOUNTER 2025-04-05 10:22 | Inpatient (IN) | payer MEDICARE, MEDICAID, SELFPAY ==
--- NOTE | ~2025-04-05 | XR_ITS ---
EXAMINATION: XR ABDOMEN KUB CLINICAL INDICATION: constipation COMPARISON: None available. TECHNIQUE: AP view of the abdomen. FINDINGS: Bowel gas pattern is normal/nonspecific. There is no focally dilated loop of bowel. There is a moderate to large volume of fecal material throughout the colon and rectum. No organomegaly or large abdominal mass. No definite abnormal soft tissue calcifications, although subtle calcifications could easily be obscured by the large volume stool present. Lung bases demonstrate mild interstitial changes, possibly on the basis of interstitial edema. No definite effusions. Mild degenerative changes in both hip joints. Degenerative changes throughout the spine. No suspicious or acute bone abnormality. XR/XR KUB IMPRESSION: 1. No evidence of bowel obstruction. 2. Moderate to large volume of fecal material throughout the colon and rectum, in keeping with obstipation. 3. Interstitial changes in the lung bases, most likely on the basis of interstitial edema. Electronically signed by: Melecio Lopez MD 04/05/2025 11:52 AM EDT
--- NOTE | ~2025-04-05 | US_ITS ---
CLINICAL HISTORY: ROBY US renal Comparison: None Provided Findings: Right kidney 9.3 cm length. No significant focal abnormality. 4 cm mid pole cyst. Left kidney 10.2 cm length. No significant focal abnormality. No bilateral hydronephrosis. Normal bilateral renal echogenicity. Impression: No significant abnormalities. This document has been electronically signed by: Daryn Mills MD on 04/07/2025 21:31:03
--- NOTE | ~2025-04-05 | CT_ITS ---
CLINICAL HISTORY: encepahlopathy CT head without contrast Comparison: None provided Findings: No acute intracranial hemorrhage. No midline shift or hydrocephalus. Mild white matter lesions are nonspecific and likely due to small-vessel ischemic disease. No large arterial territorial infarction by CT. Vascular calcifications noted. Imaged paranasal sinuses and imaged mastoid air cells are well aerated. Old left zygomatic arch fractures with remodeling. Partially imaged bilateral old nasal bone fractures. Left orbital wall fractures appear old/chronic with fat extending through inferior (floor) defect. Majority of the right parietal bone is thin and remodeled. This appears chronic by imaging at this time. Question previous left cataract procedure change. IMPRESSION: No acute intracranial abnormality by CT. This document has been electronically signed by: Pradeep Dodson MD on 04/07/2025 19:13:41
[2025-04-05 10:26] VITALS: BP 108/54; PULSE 92; RESP 18; TEMP 36.4; O2SAT 100; BMI 25.8
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
[2025-04-05 11:50] VITALS: BP 112/48; PULSE 85; RESP 14; TEMP 36.6; O2SAT 97
[2025-04-05 12:52] LABS: MANUAL DIFF FLAG NO
[2025-04-05 12:54] LABS: Hematocrit 26.1 % (42.0-52.0); Hemoglobin 7.9 g/dl (14.0-18.0); Imm Gran Abs Auto 0.02 X10*3/uL (0.00-0.03); Imm Gran Pct Auto 0.4 % (0.0-0.4); Lymphocytes Absolute Auto 0.2 X10*3/uL (1.2-4.9); Mean Corpuscular HGB Conc 30.3 g/dl (31.0-36.0); Mean Corpuscular Hemoglobin 22.2 pg (27.0-33.0); Mean Corpuscular Volume 73.3 fL (80.0-98.0); NRBC Abs Auto 0.000 X10*3/uL (0.0-0.012); NRBC Pct Auto 0.0 /100WBC (0.0-0.2); Platelet Count 211 X10*3/uL (160-400); Red Blood Count 3.56 X10*6/uL (4.60-5.80); White Blood Count 4.5 X10*3/uL (4.8-10.8)
[2025-04-05 13:22] LABS: Alanine Aminotransferase 29 U/L (0-40); Albumin Level 3.7 g/dL (3.5-5.0); Alkaline Phosphatase 83 U/L (39-117); Anion Gap 16 (12-20); Aspartate Amino Transferase 38 U/L (5-37); Blood Urea Nitrogen 56 mg/dL (9-16); Calcium 8.8 mg/dL (8.4-10.2); Carbon Dioxide 29 mmol/L (22-29); Chloride 98 mmol/L (96-108); Creatinine Clr Calc Pharmacy 25.1; Estimated Glomerular Filt Rate 33; Magnesium 2.6 mg/dL (1.6-2.6); Potassium 3.5 mmol/L (3.3-5.1); Sodium 139 mmol/L (135-145); Total Protein 6.7 g/dL (6.5-8.0)
--- NOTE | 2025-04-05 13:47 | PC.NURSE ---
very small amount of stool after soap suds enema. pt is not able to hold liquid in rectum well. fleet mineral oil edema given now. results pending
[2025-04-05 14:28] LABS: B Type Natriuretic Peptide 3116 pg/mL (<100)
--- NOTE | 2025-04-05 14:32 | ECG_ITS ---
Test Reason : leg edema Blood Pressure : */* mmHG Vent. Rate : 83 BPM Atrial Rate : 83 BPM P-R Int : 202 ms QRS Dur : 106 ms QT Int : 434 ms P-R-T Axes : 66 24 110 degrees QTcB Int : 509 ms Normal sinus rhythm with sinus arrhythmia Left ventricular hypertrophy with repolarization abnormality ( Sokolow-Giordano , Sanket product ) Prolonged QT Abnormal ECG When compared with ECG of 30-Jan-2025 13:28, Premature atrial complexes are no longer Present Criteria for Inferior infarct are no longer Present Nonspecific T wave abnormality no longer evident in Anterior leads Referred By: Kathy Fernandez Electronically Signed By: Srini Nunes
[2025-04-05 14:52] VITALS: BP 107/50; PULSE 80; RESP 20; TEMP 36.5; O2SAT 96
[2025-04-05] MEDS: Furosemide 20 MG/2 ML VIAL IVPUSH (15:06)
[2025-04-05 15:16] LABS: Troponin-I High Sensitivity 257.6 ng/L (<3.5-35.0)
[2025-04-05 15:53] LABS: Troponin-I High Sensitivity 257.0 ng/L (<3.5-35.0)
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
--- NOTE | 2025-04-05 16:49 | PHA.MEDREC ---
Pharmacy Consult ? Medication Reconciliation Pharmacy has completed the medication reconciliation. Spoke with pt and he was a bit upset stating he wants to go home, but I was able to get pt to confirm his medications by giving the pt my clipboard and him reading down our list. PT requesting he goes home to take his medications and come back . Pt was not able to confirm the last time he took his medications.
--- NOTE | 2025-04-05 16:53 | PHA.MEDREC ---
Addendum entered by Faiza Clay [facility] 04/05/25 16:58: REVIEWED BY PHARMACIST Original Note: Pharmacy Consult ? Medication Reconciliation Pharmacy has completed the medication reconciliation. Spoke with pt and pt spoke a bit Dutch and was able to under stand me. Pt was however a bit upset stating he wants to go home, but I was able to get pt to confirm his medications by giving the pt my clipboard and him reading down our list (Baby Aspirin 81mg 1QD, Furosemide 40mg tab 1 BID and Spironolactone 25mg tab stating he cuts those in half, taking 1/2 tab QD). PT requesting he goes home to take his medications and come back . Pt was not able to confirm the last time he took his medications.
--- NOTE | 2025-04-05 16:57 | PC.NURSE ---
with ethiopian solid waste engineer, MA[employer]GER [employer] and this RN attempted to explain to pt why he should stay in the hospital. HE is AOX4, but He is on/off confused and does not seem to fully understand the importance of staying. After lengthy conversation pt is agreeable to staying in the hospital for treatment at this time.
[2025-04-05 18:44] VITALS: BP 111/45; PULSE 87; RESP 18; TEMP 36.6; O2SAT 99
--- NOTE | 2025-04-05 20:39 | PC.NURSE ---
Patient ambulated to the bathroom safely with a steady gait.
--- NOTE | 2025-04-05 20:52 | PC.NURSE ---
transport here to bring pt upstairs to room. pt is refusing to leave ED. states the air is not good up there
--- NOTE | 2025-04-05 20:59 | PC.NURSE ---
capacitor inspector and case management at bedside to speak with pt
[2025-04-05 22:19] VITALS: BP 112/43; PULSE 87; RESP 18; TEMP 36.7; O2SAT 100
--- NOTE | 2025-04-05 23:54 | PC.NURSE ---
Addendum entered by Jessy Graham RN 04/05/25 23:56: Pt resting in room. Original Note: Upon rounding on patients, patient was not in room. Attempted to find patient in close by bathrooms. Patient not there. Found in the front of [facility] in a chair fully dressed, stating he was getting ready to get mineral water. Pt stating he lives close by. Brought back to room, remade bed, attempted to get pt back in gown. Refused. Pt given cold water as requested.
[2025-04-06] VITALS (12 sets, daily range): BP systolic 84–129; BP diastolic 44–61; PULSE 65–104; RESP 13–19; TEMP 36.1–36.6; O2SAT 90–100; BMI 26.0
--- NOTE | 2025-04-06 02:38 | PC.NURSE ---
Multiple episodes of bowel movements have occurred while in the ED. A couple of incontinence due to urgency and inability to make it to the [facility] bathroom in time. Patient cleaned up and given hospital attire to wear. Bed change occurred.
--- NOTE | 2025-04-06 05:13 | MHC.EDTECH ---
Pt has had loose stool. I have changed the pt x4. Cleaned him up and gave him a new gown and pants. He keeps putting on his clothes that are dirty and full of stool. I have redirected the pt mutiple times about the dirty clothes. He insists on wearing his dirty clothes even after i have given him clean clothes mutiple times. I have changed him bed mutiple times
--- NOTE | 2025-04-06 05:19 | MHC.EDTECH ---
Camera at bedside to monitor pt for elopement risk
[2025-04-06] MEDS: diazePAM 10 MG/2 ML CARTRIDGE 5 MG IVPUSH ×2 (05:25→06:39)
--- NOTE | 2025-04-06 05:35 | PC.NURSE ---
Patient continuously changing back into clothing that is covered in feces. Refusing to come out of the clothing and get cleaned up. Patients belongings are being locked into [facility].
--- NOTE | 2025-04-06 05:42 | MHC.EDTECH ---
Pts belongings are in the [facility] shelf 2
[2025-04-06 06:03] LABS: Hematocrit 26.6 % (42.0-52.0); Hemoglobin 8.0 g/dl (14.0-18.0); Mean Corpuscular HGB Conc 30.1 g/dl (31.0-36.0); Mean Corpuscular Hemoglobin 21.9 pg (27.0-33.0); Mean Corpuscular Volume 72.9 fL (80.0-98.0); NRBC Abs Auto 0.000 X10*3/uL (0.0-0.012); NRBC Pct Auto 0.0 /100WBC (0.0-0.2); Platelet Count 270 X10*3/uL (160-400); Red Blood Count 3.65 X10*6/uL (4.60-5.80); White Blood Count 6.3 X10*3/uL (4.8-10.8)
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
[2025-04-06 06:32] LABS: Alanine Aminotransferase 33 U/L (0-40); Albumin Level 4.0 g/dL (3.5-5.0); Alkaline Phosphatase 86 U/L (39-117); Anion Gap 19 (12-20); Aspartate Amino Transferase 46 U/L (5-37); Blood Urea Nitrogen 55 mg/dL (9-16); Calcium 9.1 mg/dL (8.4-10.2); Carbon Dioxide 28 mmol/L (22-29); Chloride 98 mmol/L (96-108); Creatinine Clr Calc Pharmacy 23.7; Estimated Glomerular Filt Rate 31; Iron 17 mcg/dL (45-160); Magnesium 3.2 mg/dL (1.6-2.6); Percent Iron Saturation 4 % (15-50); Potassium 4.6 mmol/L (3.3-5.1); Sodium 140 mmol/L (135-145); Total Iron Binding Capacity 419 mcg/dL (228-428); Total Protein 7.2 g/dL (6.5-8.0); Unsaturated Iron Binding 402 ug/dL
[2025-04-06 06:35] LABS: B Type Natriuretic Peptide 3169 pg/mL (<100)
[2025-04-06] MEDS: Furosemide 40 MG/4 ML VIAL IVPUSH (08:18)
[2025-04-06] MEDS: Aspirin Enteric Coated 81 MG TABLET.DR PO (08:18)
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
--- NOTE | 2025-04-06 11:37 | MHC.EDTECH ---
patient changed and linen changed as well. patient very restless, combative
--- NOTE | 2025-04-06 12:57 | PM.CNCAR ---
History of Present Illness History of Present Illness Date of Service: 04/06/25 Requesting physician: Daphne Hare Chief complaint: CHF Narrative: 84-year-old gentleman who has severe aortic stenosis and cardiomyopathy with LAD territory wall motion abnormality on echocardiography. He was seen in January of 2025 when he presented with congestive heart failure. He had had creatinine of 1.94 and BNP more than 3000 at that time. He was diuresed and started on medications and we discussed about transcatheter aortic valve replacement. He wished to see doctors at [facility] and I referred him to Dr. Huerta. He is now returning with congestive heart failure and constipation. Also by chart review he was quite fixated on going home to get something which was a secret. is also on observation due to falls at home. He was very agitated in the emergency department when I saw him. It appears he was given some Seroquel earlier. No history was possible from him. He was not allowing any oxygen on him and also was trying to punch and fight with ER staff. [facility] Past Medical History Medical History (Updated 04/06/25 @ 13:04 by Srini Nunes MD) Severe aortic valve stenosis New onset of congestive heart failure CHF exacerbation Social History Social History Household Members: Spouse Household Members Other:: 2 Housing: House Do you presently have visiting nurse or other home services: No Comment: pt refusing alarms, camera in room Patient Tobacco Use Status: Never used Tobacco Smoked in Last 30 Days: No Use of substances other than those prescribed or required for medical reasons: No Advance Directives: No Advance Directives Information Provided: Yes Nutrition Risks: No Nutritional Risk service: No Meds Allergies Allergy/AdvReac Type Severity Reaction Status Date / Time No Known Allergies (No Known Allergy Verified 04/05/25 10:27 Allergies*) Active Medications: Current Medications Acetaminophen (Acetaminophen 325 Mg Tablet) 650 mg PO Q6H PRN PRN Reason: Pain, Mild 1-3,fever,headache Aspirin (Aspirin Enteric Coated 81 Mg Tablet.) 81 mg PO DAILY [facility] Last Admin: 04/06/25 08:18 Dose: 81 mg Calcium Carbonate (Calcium Carbonate 750 Mg Tab.Chew) 750 mg PO Q4H PRN PRN Reason: Heartburn Docusate Sodium (Docusate Sodium 100 Mg Capsule) 100 mg PO BID [facility] Last Admin: 04/06/25 08:18 Dose: 100 mg Furosemide (Furosemide 40 Mg/4 Ml Vial) 40 mg IVPUSH BID@0900,1800 [facility]; Protocol Last Admin: 04/06/25 08:18 Dose: 40 mg Heparin Sodium (Porcine) (Heparin Sodium,Porcine 5,000 Unit/Ml Vial) 5,000 unit SUBCUT Q12H [facility] Last Admin: 04/06/25 05:41 Dose: 5,000 unit Magnesium Hydroxide (Milk Of Magnesia 30 Ml Oral.Susp) 30 ml PO DAILY PRN PRN Reason: Constipation Melatonin (Melatonin 3 Mg Tablet) 6 mg PO BEDTIME PRN PRN Reason: Insomnia Ondansetron HCl (Ondansetron Hcl 4 Mg/2 Ml Vial) 4 mg IVPUSH Q8H PRN PRN Reason: Nausea and Vomiting Oxycodone HCl (Oxycodone Hcl Immed Release 5 Mg Tablet) 5 mg PO Q6H PRN PRN Reason: Pain, Severe (Pain Scale 7-10) Quetiapine Fumarate (Quetiapine Fumarate 25 Mg Tablet) 25 mg PO BID PRN PRN Reason: Anxiety Senna (Sennosides 8.6 Mg Tablet) 8.6 mg PO BEDTIME [facility] Last Admin: 04/05/25 22:18 Dose: 8.6 mg Sodium Chloride (0.9 % Sodium Chloride Flush 3 Ml Syringe) 3 ml IVFLUSH QSHIFT [facility] Last Admin: 04/06/25 07:37 Dose: Not Given Physical Exam Vital Signs: Vital Signs: Last Vital Signs Temp 97.8 F 04/06/25 07:58 Pulse 65 04/06/25 11:48 Resp 15 04/06/25 07:58 BP 105/46 L 04/06/25 11:48 Pulse Ox 100 04/06/25 11:48 O2 Del Method Room Air 04/06/25 11:48 BMI result Body Mass Index 25.8 Physical examination was limited due to his mental status. GENERAL APPEARANCE: Agitated. NECK: no carotid bruit, no obvious jugular venous distention. SKIN: no suspicious lesions, warm and dry. HEART: Ejection systolic murmur aortic area, regular rate and rhythm. LUNGS: clear to auscultation bilaterally. ABDOMEN: soft, nontender. EXTREMITIES: no edema. PERIPHERAL PULSES: equal. Objective Labs and Meds 04/06/25 05:08 04/06/25 05:08 Lab results: Laboratory Results - last 24 hr 04/05/25 04/05/25 04/06/25 12:48 15:27 05:08 WBC 6.3 RBC 3.65 L Hgb 8.0 L Hct 26.6 L MCV 72.9 L MCH 21.9 L MCHC 30.1 L RDW 16.0 Plt Count 270 D MPV 10.1 Absolute Nucleated RBC 0.000 Nucleated RBC % (auto) 0.0 Sodium 139 140 Potassium 3.5 4.6 D Chloride 98 98 Carbon Dioxide 29 28 Anion Gap 16 19 BUN 56 H 55 H Creatinine 1.94 H 2.05 H Estim Creat Clear Calc 25.1 23.7 Estimated GFR 33 31 Random Glucose 132 H 132 H Calcium 8.8 9.1 Magnesium 2.6 3.2 H Iron 17 L TIBC 419 % Saturation 4 L Unsat Iron Binding 402 Total Bilirubin 1.5 H 1.6 H Direct Bilirubin 0.5 AST 38 H 46 H ALT 29 33 Alkaline Phosphatase 83 86 Troponin I High Sens 257.6 H* D 257.0 H* B-Natriuretic Peptide 3116 H 3169 H Total Protein 6.7 7.2 Albumin 3.7 4.0 TSH 3.08 Assessment and Plan (1) Severe aortic valve stenosis: Status: Acute Plan [age] year gentleman presenting for constipation and psych issues. He has known severe aortic valve stenosis and cardiomyopathy and was previously referred to [facility] for further assessment. He was supposed to be on Lasix 40 mg twice a day and spironolactone. He has elevated BNP of 3169 and apparently is being diuresed due to that. He does not have any chest x-ray. Clinically does not appear to be significantly volume overloaded. I think Lasix can be changed to once a day and as he becomes more awake should be changed back to oral diuretics. Currently quite agitated and confused and that is the main issue for him. Unsure why this is happening as he is not very well known to our practice and was seen only 1 time in January before. It is possible he has dementia or underlying psychiatric issues because he was quite fixated on going back home to do something cigarette as per the notes. In any case in his further workup including workup for sepsis to make sure he does not have any infection causing confusion and delirium. Once improved to the point that any procedures can be discussed then we can start the conversation and refer him to [facility]. Thank you for allowing me to participate in the care of your patient. Please feel free to contact me if you have any questions. Procedures Date of Service Date of Service: 04/06/25
--- NOTE | 2025-04-06 13:02 | MHC.CM.PN ---
Pt. is confused at this time, CM contacted his dtr Tanya at [phone], she lives in [place]. Pt. does not have a PCP, he was independent, with neighbors helping with shopping. He bought things on the computer and cooked meals. He lives with is who is also in the ED. Pt.'s dtr said that her farther is very capable of managing at home. He does not use medical equipment. DCP is TBD. CM to follow for DC needs.
[2025-04-06] MEDS: diazePAM 10 MG/2 ML CARTRIDGE 5 MG IM (14:00)
--- NOTE | 2025-04-06 14:32 | ECG_ITS ---
Test Reason : AMS Blood Pressure : */* mmHG Vent. Rate : 95 BPM Atrial Rate : 95 BPM P-R Int : 196 ms QRS Dur : 106 ms QT Int : 404 ms P-R-T Axes : 82 39 125 degrees QTcB Int : 507 ms Sinus rhythm with Premature atrial complexes Left ventricular hypertrophy with repolarization abnormality ( [place] product ) Prolonged QT Abnormal ECG When compared with ECG of 05-Apr-2025 14:43, Premature atrial complexes are now Present Referred By: Eduin Brewster Electronically Signed By: Srini Nunes
--- NOTE | 2025-04-06 14:47 | PC.NURSE ---
Pt became increasingly agitated, confused, and attempted to hit bedside staff again. MD aware, IM valium and haldol ordered (haldol pending EKG due to previous prolonged QT), and EKG ordered. Psych PA @ bedside. Camera remains in place, 1:[address] Care ongoing.
--- NOTE | 2025-04-06 17:33 | P.CNPS_ITS ---
History of Present Illness Date of Service: 04/06/25 Chief Complaint: CHF Reason for Consult: 'Severe anxiety, behavioral disturbances Requesting physician: Daphne Hare Discussed with referring provider: Yes Sources of Information: patient interviewed, chart reviewed and crisis/core team assessment reviewed HPI Narrative: Per Medical provider note: Patient is a 84-year-old man with a history of congestive heart failure with reduced ejection fraction presenting to the ER with severe constipation, rectal pain and likely heart failure. Apparently the family had an argument with her daughter and it was very stressful. She had recently come from [place] and this is when his symptoms started. At home he had tried preparation H and he is unable to pass gas as well. Apparently he had also not been eating very well. He also reports that he can not lay flat. They do not have any other family other than a neighbor who watches out for them who did come to the hospital to bring him a fan as he requested. He seems like he is somewhat confused and repeating things over and over again. In the ER, his BNP is over 3000, significant leg edema, creatinine 1.94, KUB showing no bowel obstruction but moderate to large volume of fecal material. He was given lactulose, fleets enema, Lasix and Mag citrate. He will be admitted for further management and treatment of acute CHF and constipation. Past Psychiatric History: Not able to obtain due to current clinical mental status. Medical Evaluation Reviewed: Yes Personal & Social History: Not able to discuss obtain due to current clinical mental status Review of Systems Review of Systems Yes Unobtainable due to mental condition and Unobtainable due to mental status [facility] Medical History (Updated 04/06/25 @ 17:40 by Rosemary Lynch NP) Severe aortic valve stenosis New onset of congestive heart failure CHF exacerbation Family History: Not able to obtain Social History: Not able to obtain Substance History: Not able to obtain Trauma History: Not able to obtain Diagnostics Vital Signs (24Hr): Vital Signs - 24 hr 04/05/25 18:44 04/05/25 22:19 04/06/25 05:33 Temperature 97.8 F 98.1 F Pulse Rate 87 87 81 Respiratory Rate 18 18 13 Blood Pressure 111/45 L 112/43 L 104/44 L Pulse Oximetry 99 100 97 Oxygen Delivery Method Room Air Room Air Oxygen Flow Rate 04/06/25 07:58 04/06/25 08:18 04/06/25 11:20 Temperature 97.8 F Pulse Rate 88 78 Respiratory Rate 15 Blood Pressure 108/48 L 115/48 L Pulse Oximetry 96 100 Oxygen Delivery Method Room Air Room Air Oxygen Flow Rate 04/06/25 11:48 04/06/25 14:18 04/06/25 14:20 Temperature Pulse Rate 65 Respiratory Rate Blood Pressure 105/46 L Pulse Oximetry 100 90 L 93 Oxygen Delivery Method Room Air Room Air Nasal Cannula Oxygen Flow Rate 3 04/06/25 14:21 04/06/25 14:30 04/06/25 15:26 Temperature 97 F Pulse Rate 79 75 Respiratory Rate 19 16 Blood Pressure 105/44 L 84/48 L Pulse Oximetry 95 97 100 Oxygen Delivery Method Nasal Cannula Nasal Cannula Nasal Cannula Oxygen Flow Rate 4 4 4 BMI result Body Mass Index 26.0 Labs 04/06/25 05:08 04/06/25 05:08 Labs: Laboratory Results - last 48 hr 04/05/25 04/05/25 04/06/25 12:48 15:27 05:08 WBC 4.5 L 6.3 RBC 3.56 L 3.65 L Hgb 7.9 L 8.0 L Hct 26.1 L 26.6 L MCV 73.3 L 72.9 L MCH 22.2 L 21.9 L MCHC 30.3 L 30.1 L RDW 15.7 16.0 Plt Count 211 270 D MPV 9.3 L 10.1 Immature Gran % (Auto) 0.4 Neut % (Auto) 88.8 H Lymph % (Auto) 4.7 L [place] % (Auto) 5.5 Eos % (Auto) 0.2 Baso % (Auto) 0.4 Lymph # (Auto) 0.2 L [place] # (Auto) 0.3 Eos # (Auto) 0.0 Baso # (Auto) 0.0 Abs Immat Gran (auto) 0.02 Absolute Neuts (auto) 4.0 Absolute Nucleated RBC 0.000 0.000 Nucleated RBC % (auto) 0.0 0.0 Sodium 139 140 Potassium 3.5 4.6 D Chloride 98 98 Carbon Dioxide 29 28 Anion Gap 16 19 BUN 56 H 55 H Creatinine 1.94 H 2.05 H Estim Creat Clear Calc 25.1 23.7 Estimated GFR 33 31 Random Glucose 132 H 132 H Calcium 8.8 9.1 Magnesium 2.6 3.2 H Iron 17 L TIBC 419 % Saturation 4 L Unsat Iron Binding 402 Total Bilirubin 1.5 H 1.6 H Direct Bilirubin 0.5 AST 38 H 46 H ALT 29 33 Alkaline Phosphatase 83 86 Troponin I High Sens 257.6 H* D 257.0 H* B-Natriuretic Peptide 3116 H 3169 H Total Protein 6.7 7.2 Albumin 3.7 4.0 TSH 3.08 Imaging Radiology Impressions: ITS Impressions KUB X-Ray 04/05/25 10:41 IMPRESSION: 1. No evidence of bowel obstruction. 2. Moderate to large volume of fecal material throughout the colon and rectum, in keeping with obstipation. 3. Interstitial changes in the lung bases, most likely on the basis of interstitial edema. Electronically signed by: Melecio Lopez MD 04/05/2025 11:52 AM EDT RP Mental Status Exam Mental Status Exam Narrative: Patient is agitated, confused, kicking people, mumbling to himself. Not able to obtain full mental status exam due to mental status at this current time. Patient is wearing hospital pull-ups. No clothes on. Medications Medications Current Medications Acetaminophen (Acetaminophen 325 Mg Tablet) 650 mg PO Q6H PRN PRN Reason: Pain, Mild 1-3,fever,headache Aspirin (Aspirin Enteric Coated 81 Mg Tablet.) 81 mg PO DAILY [facility] Last Admin: 04/06/25 08:18 Dose: 81 mg Calcium Carbonate (Calcium Carbonate 750 Mg Tab.Chew) 750 mg PO Q4H PRN PRN Reason: Heartburn Docusate Sodium (Docusate Sodium 100 Mg Capsule) 100 mg PO BID [facility] Last Admin: 04/06/25 08:18 Dose: 100 mg Furosemide (Furosemide 40 Mg Tablet) 40 mg PO BID@0900,1800 [facility]; Protocol Last Admin: 04/06/25 15:47 Dose: Not Given Heparin Sodium (Porcine) (Heparin Sodium,Porcine 5,000 Unit/Ml Vial) 5,000 unit SUBCUT Q12H [facility] Last Admin: 04/06/25 05:41 Dose: 5,000 unit Magnesium Hydroxide (Milk Of Magnesia 30 Ml Oral.Susp) 30 ml PO DAILY PRN PRN Reason: Constipation Melatonin (Melatonin 3 Mg Tablet) 6 mg PO BEDTIME PRN PRN Reason: Insomnia Ondansetron HCl (Ondansetron Hcl 4 Mg/2 Ml Vial) 4 mg IVPUSH Q8H PRN PRN Reason: Nausea and Vomiting Polyethylene Glycol (Polyethylene Glycol 3350 17 Gm Powd.Pack) 17 gm PO DAILY [facility] Last Admin: 04/06/25 17:00 Dose: Not Given Quetiapine Fumarate (Quetiapine Fumarate 25 Mg Tablet) 25 mg PO BID PRN PRN Reason: Anxiety Senna (Sennosides 8.6 Mg Tablet) 8.6 mg PO BEDTIME [facility] Last Admin: 04/05/25 22:18 Dose: 8.6 mg Sodium Chloride (0.9 % Sodium Chloride Flush 3 Ml Syringe) 3 ml IVFLUSH QSHIFT [facility] Last Admin: 04/06/25 07:37 Dose: Not Given Allergies Allergies Allergy/AdvReac Type Severity Reaction Status Date / Time No Known Allergies (No Known Allergy Verified 04/05/25 10:27 Allergies*) Assessment & Plan Assessment & Plan (1) Agitated: Status: Acute Code(s): R45.1 - Restlessness and agitation Plan HPI: Per Medical provider note: Patient is a 84-year-old man with a history of congestive heart failure with reduced ejection fraction presenting to the ER with severe constipation, rectal pain and likely heart failure. Apparently the family had an argument with her daughter and it was very stressful. She had recently come from [place] and this is when his symptoms started. At home he had tried preparation H and he is unable to pass gas as well. Apparently he had also not been eating very well. He also reports that he can not lay flat. They do not have any other family other than a neighbor who watches out for them who did come to the hospital to bring him a fan as he requested. He seems like he is somewhat confused and repeating things over and over again. In the ER, his BNP is over 3000, significant leg edema, creatinine 1.94, KUB showing no bowel obstruction but moderate to large volume of fecal material. He was given lactulose, fleets enema, Lasix and Mag citrate. He will be admitted for further management and treatment of acute CHF and constipation. This provider approach patient at bedside at 01:40PM, in the ED bed 11: Nursing staff was around to help him due to increased disorganization, confused, anxious and aggressive. Observe he kicking and tried to get up but not sure what he was doing. O2 sats was low but get up to 93% at room air. He appeared to be confused, disorganized, awake alert but not oriented. Not able to assess what make him more agitated/mental status exam. Not able to obtain family history. Not able to obtain psychiatric history. Plan: Case discussed with Dr. Hare and the nurse on duty. Nursing staff 5 2 tablets of medication in bed when they tried to cleaning up and helping him. Not able to identify what the medications are. EKG also reviewed with nurse on duty, and provider on duty Dr. Hare, Haldol was held due to prolonged QTC 509. Give Valium 5 mg IM with good effect for severe anxiety and agitation. Dr. Hare is aware to reorder another EKG. We will continue to who on any antipsychotic medication that can prolong QTC is at this time until further with better and clinical up QTC trending down. Patient appeared to respond very well to Valium IM 5 mg. Continue with the treatment for medical issue per primary medical team. Total time managing care of this patient today ____ minutes. Patient educated on: other (Patient was not able to be educated on medication give due to current mental status change. ) Informed Consent: further education needed
--- NOTE | 2025-04-06 17:54 | HO.PM.IMPN ---
Subjective Subjective Date of Service: 04/07/25 Interval History: chf ,agiatation severe aortic stenosis Review of Systems confused/agiatted received diazepam 10 mg last night. Still very agitated over the afternoon received 5 mg of diazepam. Currently restless/more sleepy, will avoid more benzodiazepines or sedative medications for now Review of Systems: Yes all other systems are reviewed and are negative Physical Exam Exam: Exam: Appearance: sleepy /restless , cvs: rrr, [id number] res: air entry fair ,slightly diminshed at bases. abd: no rebound or guarding ,nt, bs present. ext pulses present , no cyanosis . neuro: moving all ext spontaneouly Vital Signs: Vital Signs: Last Vital Signs Temp 97 F 04/06/25 15:26 Pulse 75 04/06/25 15:26 Resp 16 04/06/25 15:26 BP 84/48 L 04/06/25 15:26 Pulse Ox 100 04/06/25 15:26 O2 Del Method Nasal Cannula 04/06/25 15: O2 Flow Rate 4 04/06/25 15:26 BMI result Body Mass Index 26.0 Objective Data Active Medications Acetaminophen (Acetaminophen 325 Mg Tablet) 650 mg PO Q6H PRN PRN Reason: Pain, Mild 1-3,fever,headache Aspirin (Aspirin Enteric Coated 81 Mg Tablet.Dr) 81 mg PO DAILY [facility] Last Admin: 04/06/25 08:18 Dose: 81 mg Documented By: CORTEZ Calcium Carbonate (Calcium Carbonate 750 Mg Tab.Chew) 750 mg PO Q4H PRN PRN Reason: Heartburn Docusate Sodium (Docusate Sodium 100 Mg Capsule) 100 mg PO BID [facility] Last Admin: 04/06/25 08:18 Dose: 100 mg Documented By: CORTEZ Furosemide (Furosemide 40 Mg Tablet) 40 mg PO BID@0900,1800 ON [facility]; Protocol Last Admin: 04/06/25 15:47 Dose: Not Given Documented By: KAYLA Non-Admin Reason: Physician Held Med Heparin Sodium (Porcine) (Heparin Sodium,Porcine 5,000 Unit/Ml Vial) 5,000 unit SUBCUT Q12H ON [facility] Last Admin: 04/06/25 05:41 Dose: 5,000 unit Documented By: KAREN Magnesium Hydroxide (Milk Of Magnesia 30 Ml Oral.Susp) 30 ml PO DAILY PRN PRN Reason: Constipation Melatonin (Melatonin 3 Mg Tablet) 6 mg PO BEDTIME PRN PRN Reason: Insomnia Ondansetron HCl (Ondansetron Hcl 4 Mg/2 Ml Vial) 4 mg IVPUSH Q8H PRN PRN Reason: Nausea and Vomiting Polyethylene Glycol (Polyethylene Glycol 3350 17 Gm Powd.Pack) 17 gm PO DAILY [facility] Last Admin: 04/06/25 17:00 Dose: Not Given Documented By: KAYLA Non-Admin Reason: Patient Condition Contraindication Quetiapine Fumarate (Quetiapine Fumarate 25 Mg Tablet) 25 mg PO BID PRN PRN Reason: Anxiety Senna (Sennosides 8.6 Mg Tablet) 8.6 mg PO BEDTIME ON [facility] Last Admin: 04/05/25 22:18 Dose: 8.6 mg Documented By: KAREN Sodium Chloride (0.9 % Sodium Chloride Flush 3 Ml Syringe) 3 ml IVFLUSH QSHIFT ON [facility] Last Admin: 04/06/25 07:37 Dose: Not Given Documented By: CORTEZ Non-Admin Reason: Patient Asleep Labs 04/06/25 05:08 04/07/25 08:18 Labs: Laboratory Results - last 24 hr 04/06/25 05:08 MCV 72.9 L MCH 21.9 L MCHC 30.1 L RDW 16.0 Plt Count 270 D MPV 10.1 Absolute Nucleated RBC 0.000 Nucleated RBC % (auto) 0.0 Anion Gap 19 Estim Creat Clear Calc 23.7 Estimated GFR 31 Random Glucose 132 H Calcium 9.1 Magnesium 3.2 H Iron 17 L TIBC 419 % Saturation 4 L Unsat Iron Binding 402 Total Bilirubin 1.6 H AST 46 H ALT 33 Alkaline Phosphatase 86 B-Natriuretic Peptide 3169 H Total Protein 7.2 Albumin 4.0 Assessment and Plan (1) New onset of congestive heart failure: Status: Inactive Assessment and Plan: 84-year-old man admitted with acute congestive heart failure and constipation. Very fixated on going home to get something, he reported it was a ?secret?. Delirum vs toxic metabolic encepahlopathy: Due to overall medical condition(ROBY, sedative medication,? Question cognitive impairment). Supportive care, avoid sedative medications including benzodiazepine, sitter if needed we will use soft restraints. discussed with icu -he gets very drowsy with benzo's ,his qtc slightly prolonged -avoid sedative/antipsycotics meds . d/w daughter -? if any substance/intake(daughter says -does not have any specific substance ):tylenol/salisalate levels,etoh levels , utox. Acute congestive heart failure ef 40-45% , severe aortic stensosis . sats in 96% on room air BNP [id number] Monitor on telemetry plan: recieved lasix. 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 Patient is very difficult due to agitation does not let us do any labs, telemetry monitoring. Quality Stroke Does the patient have a stroke diagnosis?: No VTE Prior VTE?: No VTE Risk Level:: Medical - moderate - high VTE Device Contraindication: Treatment Not Indicated VTE Drug Contraindication: N/A - Med Ordered
[2025-04-06] MEDS: 0.9 % Sodium Chloride Flush 3 ML SYRINGE IVFLUSH (19:40)
--- NOTE | 2025-04-06 20:18 | PC.NURSE ---
pt arrived to unit via bed with transport, 1:1 sitter, and ED RD. pt appreared calm in bed. pt then became increasingly aggitated and restless in the bed, removing monitor, continuous o2 probe, and nasal cannula, hitting and attempted to kick staff while also attempting to exit the bed. when o2 probe was on pt and had good pleth, o2 would drop from low 80s to mid 90s frequently. This RN talked with daughter Stef, who was able to talk with pt via pts cellphone. daughter stated that is not pts baseline and that she is unable to understand what the pt is saying to her when he speaks. lucina Johnson notified of these events and came to bedside. This RN and MD attempted to obtain manual BP but were unsuccessful d/t pt being restless and agitated. see new orders.
[2025-04-06 20:27] LABS: VBG HCO3 30 mmol/L (22-26); VBG O2 % Saturation 50.0 %
[2025-04-06 20:28] LABS: Venous Blood Gas Refer to POC result
[2025-04-06 20:30] LABS: Ammonia 19 umol/L (13-55)
[2025-04-06 20:33] LABS: Osmolality, Serum 309 mosm/kg (281-305)
[2025-04-06 20:40] LABS: Acetaminophen LAB < 3 mcg/mL (<30); Alanine Aminotransferase 30 U/L (0-40); Albumin Level 3.8 g/dL (3.5-5.0); Alkaline Phosphatase 85 U/L (39-117); Aspartate Amino Transferase 47 U/L (5-37); Salicylate < 5.0 mg/dL (15-30); Total Protein 7.0 g/dL (6.5-8.0)
[2025-04-06 20:43] LABS: Anion Gap 20 (12-20); Blood Urea Nitrogen 58 mg/dL (9-16); Calcium 8.9 mg/dL (8.4-10.2); Carbon Dioxide 25 mmol/L (22-29); Chloride 99 mmol/L (96-108); Creatinine Clr Calc Pharmacy 23.0; Estimated Glomerular Filt Rate 30; Potassium 4.1 mmol/L (3.3-5.1); Sodium 140 mmol/L (135-145)
[2025-04-06 21:16] LABS: Appearance Urine Clear; Glucose Urine UA Negative (Negative); PH 7.5 (5.0-9.0); Specific Gravity - Urine 1.010 (1.005-1.025); UMIC TRIGGER UACC YES
[2025-04-06 21:27] LABS: Cannabinoid Screen Urine Not Detected (Not Detect)
[2025-04-07] VITALS (7 sets, daily range): BP systolic 86–124; BP diastolic 38–78; PULSE 79–104; RESP 16–18; TEMP 36.2–37; O2SAT 90–99
[2025-04-07] MEDS: 0.9 % Sodium Chloride Flush 3 ML SYRINGE IVFLUSH ×4 (00:35→20:44)
--- NOTE | 2025-04-07 00:59 | PC.NURSE ---
ICU SUPERINTENDENT LAUNDRY PRESENT AT BEDSIDE 20:45 HOSPITALIST REQUEST....TO STRAIGHT CATH PATIENT FOR URINE SAMPLES PER ICU SUPERINTENDENT LAUNDRY..PREVIOUSLY RECEIVED HALDOL IM FOR CONFUSION/AGITATION/ATTEMPTING TO STRIKE STAFF,,UNABLE TO MAINTAIN MONITOR OR O2 ON PATIENT....BILATERAL SOFT WRIST RESTRAINTS APPLIED PER MD..STRAIGHT CATH'D 300ML OVIDIO URINE..MONITOR RE-APPLIED...SINUS TACH HR 110'S//O2 RE-APPLIED 3 L/M FOR SAO2 86% ROOM AIR...WITH IMPROVEMENT TO 94-95%..BILATERAL WRIST RESTRAINTS MAINTAINED PER MD TO MAINTAIN EKG MONITORING AND O2 DELIVERY..SITTER AT BEDSIDE
[2025-04-07] MEDS: OLANZapine 10 MG VIAL 5 MG IM (01:30)
--- NOTE | 2025-04-07 02:22 | PC.NURSE ---
POISON CONTROL CALLED AND GIVEN PATIENT UPDATE INCLUDING LABS..NO NEW ORDERS OR SUGGESTIONS GIVEN
[2025-04-07 08:06] LABS: Hemoglobin A1C 85.1067 umol/L; Total Hemoglobin (HGBA1C) 2168.4298 umol/L
[2025-04-07 09:00] LABS: Anion Gap 17 (12-20); Blood Urea Nitrogen 66 mg/dL (9-16); Calcium 8.9 mg/dL (8.4-10.2); Carbon Dioxide 29 mmol/L (22-29); Chloride 100 mmol/L (96-108); Creatinine Clr Calc Pharmacy 22.3; Estimated Glomerular Filt Rate 29; Potassium 4.5 mmol/L (3.3-5.1); Sodium 141 mmol/L (135-145)
[2025-04-07] MEDS: Aspirin Enteric Coated 81 MG TABLET.DR PO (09:01)
[2025-04-07 09:11] LABS: B Type Natriuretic Peptide 4244 pg/mL (<100)
[2025-04-07] MEDS: Lidocaine 4 % Patch ADH..PATCH 1 PATCH TRANSDERMA (12:38)
--- NOTE | 2025-04-07 13:02 | MHC.CM.PN ---
Per rounds, pt. is not ready to DC, he is still confused and agitated, which is not his base line. CM to follow for DC needs.
--- NOTE | 2025-04-07 14:26 | P.CONNP_ITS ---
History of Present Illness Reason for Consult Consult date: 04/07/25 Chief Complaint Chief complaint: CHF History of Present Illness Narrative: 84 y/o patient with HFrEF, severe aortic valve stenosis. Presented 04/05 with severe constipation rectal pain and low O2 sats, LE edema, and inability to lie flat. Repeating things in ED and seemed confused per notes. Being treated for CHF exacerbation and constipation. Nephrology consulted for ROBY creatinine 1.44 on 02/01 04/05 is 1.94 04/06 is 2.05, then 2.11 04/07 is 2.18 BNP is 4244 O2 sats 91% on room air. CXR shows bilateral infiltrates patient has some lower extremity edema. bedside RN states he has not passed urine since yesterday when he was straight- catheterized. Patient's speech is difficult to understand at bedside, denies chest pain, shortness of breath, abdominal/flank pain, urianry symptoms. Review of Systems Review of Systems Yes all other systems are reviewed and are negative Reports confusion Psychiatric: Reports confusion PMFSH Past Medical History Medical History (Updated 04/06/25 @ 17:40 by Rosemary Lynch NP) Severe aortic valve stenosis New onset of congestive heart failure CHF exacerbation Social History Social History Household Members: Spouse Household Members Other:: 2 Housing: House Do you presently have visiting nurse or other home services: No Comment: pt refusing alarms, camera in room Patient Tobacco Use Status: Tobacco use Unknown service: No Meds Allergies Allergy/AdvReac Type Severity Reaction Status Date / Time No Known Allergies (No Known Allergy Verified 04/05/25 10:27 Allergies*) Active Medications: Current Medications Acetaminophen (Acetaminophen 325 Mg Tablet) 975 mg PO Q6H PRN PRN Reason: Pain, Mild 1-3,fever,headache Last Admin: 04/07/25 12:37 Dose: 975 mg Aspirin (Aspirin Enteric Coated 81 Mg Tablet.) 81 mg PO DAILY [facility] Last Admin: 04/07/25 09:01 Dose: 81 mg Bisacodyl (Bisacodyl 10 Mg Supp.Rect) 10 mg [place] BEDTIME [facility] Last Admin: 04/06/25 21:15 Dose: Not Given Calcium Carbonate (Calcium Carbonate 750 Mg Tab.Chew) 750 mg PO Q4H PRN PRN Reason: Heartburn Docusate Sodium (Docusate Sodium 100 Mg Capsule) 100 mg PO BID [facility] Last Admin: 04/07/25 09:01 Dose: 100 mg Furosemide (Furosemide 100 Mg/10 Ml Vial) 80 mg IVPUSH BID@0900,1800 [facility]; Protocol Heparin Sodium (Porcine) (Heparin Sodium,Porcine 5,000 Unit/Ml Vial) 5,000 unit SUBCUT Q12H [facility] Last Admin: 04/07/25 05:36 Dose: 5,000 unit Lidocaine (Lidocaine 4 % Patch Adh..Patch) 1 patch TRANSDERMA DAILY [facility]; Protocol Last Admin: 04/07/25 12:38 Dose: 1 patch Magnesium Hydroxide (Milk Of Magnesia 30 Ml Oral.Susp) 30 ml PO DAILY PRN PRN Reason: Constipation Melatonin (Melatonin 3 Mg Tablet) 6 mg PO BEDTIME PRN PRN Reason: Insomnia Polyethylene Glycol (Polyethylene Glycol 3350 17 Gm Powd.Pack) 17 gm PO DAILY [facility] Last Admin: 04/07/25 09:01 Dose: 17 gm Quetiapine Fumarate (Quetiapine Fumarate 25 Mg Tablet) 25 mg PO BID PRN PRN Reason: Anxiety Senna (Sennosides 8.6 Mg Tablet) 8.6 mg PO BEDTIME [facility] Last Admin: 04/06/25 21:15 Dose: Not Given Sodium Chloride (0.9 % Sodium Chloride Flush 3 Ml Syringe) 3 ml IVFLUSH QSHIFT [facility] Last Admin: 04/07/25 09:01 Dose: 3 ml Physical Exam Vital Signs: Last Vital Signs Temp 98.6 F 04/07/25 11:28 Pulse 79 04/07/25 11:28 Resp 16 04/07/25 11:28 BP 123/59 L 04/07/25 11:28 Pulse Ox 91 L 04/07/25 11:28 O2 Del Method Room Air 04/07/25 11:28 O2 Flow Rate 2 04/07/25 07:16 BMI result Body Mass Index 26.0 Const General: alert, awake and confusion Orientation/consciousness: confusion Resp Effort & Inspection: normal respiratory effort and able to speak in complete sentences Auscultation: diminished lung sounds Cardio Rate: regular rate Rhythm: regular rhythm Heart sounds: S1 normal heart sound present and S2 normal heart sound present GI Palpation (GI): Soft to palpation and nontender General: Yes no CVA tenderness Back/Spine/Pelvis Back: no CVA tenderness Skin Rashes: no rashes Neuro General: confusion Extrem General: Yes edema (+1 BLE edema) Results Lab Results 04/06/25 05:08 04/07/25 08:18 Lab results: Chemistry 04/05/25 04/06/25 04/06/25 12:48 05:08 20:10 Sodium 139 140 140 Potassium 3.5 4.6 D 4.1 Carbon Dioxide 29 28 25 BUN 56 H 55 H 58 H Creatinine 1.94 H 2.05 H 2.11 H Calcium 8.8 9.1 8.9 04/07/25 08:18 Sodium 141 Potassium 4.5 Carbon Dioxide 29 BUN 66 H Creatinine 2.18 H Calcium 8.9 Hematology 04/05/25 04/06/25 12:48 05:08 WBC 4.5 L 6.3 Hgb 7.9 L 8.0 L Plt Count 211 270 D Urinalysis 04/06/25 21:00 Urine Color Yellow Urine Appearance Clear Urine pH 7.5 Ur Specific [place] 1.010 Urine Protein Trace Urine Glucose (UA) Negative Urine Ketones Negative Urine Blood Trace H Urine Nitrite Negative Ur Leukocyte Esterase Negative Urine RBC 6-10 H Urine WBC 0-5 Ur Squamous Epith Cells 0-2 Hyaline Casts 3-5 Assessment and Plan (1) ROBY (acute kidney injury): Status: Acute Plan ROBY likely cardiorenal syndrome patient appears hypervolemic, recommend lasix 80mg IVP BID recommend soto catheter placement, will get US to rule out obstruction recommend avoiding nephrotoxins recommend daily electrolyte and renal function studies recommend close I&O monitoring, daily weights Continue supportive care Discussed with Dr Antwon Fall Date of Service Date of Service: 04/07/25
--- NOTE | 2025-04-07 14:37 | PM.PNCARD ---
Subjective Subjective Date of Service: 04/07/25 Interval history: Seen examined at bedside. More awake compared to yesterday but still confused. Denying any symptoms. Physical Exam Vital Signs: Last Vital Signs Temp 98.6 F 04/07/25 11:28 Pulse 79 04/07/25 11:28 Resp 16 04/07/25 11:28 BP 123/59 L 04/07/25 11:28 Pulse Ox 91 L 04/07/25 11:28 O2 Del Method Room Air 04/07/25 11:28 O2 Flow Rate 2 04/07/25 07:16 BMI result Body Mass Index 26.0 GENERAL APPEARANCE: Awake and cooperative today. Confused. NECK: no carotid bruit, no obvious jugular venous distention. SKIN: no suspicious lesions, warm and dry. HEART: Ejection systolic murmur aortic area, regular rate and rhythm. LUNGS: clear to auscultation bilaterally. ABDOMEN: soft, nontender. EXTREMITIES: no edema. PERIPHERAL PULSES: equal. Objective Labs and Meds 04/06/25 05:08 04/07/25 08:18 Lab results: Laboratory Results - last 24 hr 04/06/25 04/06/25 04/06/25 05:08 20:10 20:20 VBG pH 7.50 H VBG pCO2 38 VBG pO2 37 VBG HCO3 30 H VBG O2 Saturation 50.0 VBG Base Excess 6.8 Sodium 140 Potassium 4.1 Chloride 99 Carbon Dioxide 25 Anion Gap 20 BUN 58 H Creatinine 2.11 H Estim Creat Clear Calc 23.0 Estimated GFR 30 Random Glucose 149 H Estimat Average Glucose 117 Hemoglobin A1c % 5.7 Osmolality 309 H Calcium 8.9 Total Bilirubin 1.7 H Direct Bilirubin 0.6 H AST 47 H ALT 30 Alkaline Phosphatase 85 Ammonia 19 B-Natriuretic Peptide Total Protein 7.0 Albumin 3.8 Urine Color Urine Appearance Urine pH Ur Specific [place] Urine Protein Urine Glucose (UA) Urine Ketones Urine Blood Urine Nitrite Ur Leukocyte Esterase Urine RBC Urine WBC Ur Squamous Epith Cells Urine Bacteria Hyaline Casts Salicylates < 5.0 L Urine Opiates Screen Ur Buprenorphine Scrn Ur Oxycodone Screen Urine Methadone Screen Urine Fentanyl Screen Acetaminophen < 3 Ur Barbiturates Screen Ur Phencyclidine Scrn Ur Amphetamines Screen U Benzodiazepines Scrn Urine Cocaine Screen U Marijuana (THC) Screen Ethyl Alcohol < 10 Urine Ethyl Alcohol 04/06/25 04/07/25 21:00 08:18 VBG pH VBG pCO2 VBG pO2 VBG HCO3 VBG O2 Saturation VBG Base Excess Sodium 141 Potassium 4.5 Chloride 100 Carbon Dioxide 29 Anion Gap 17 BUN 66 H Creatinine 2.18 H Estim Creat Clear Calc 22.3 Estimated GFR 29 Random Glucose 130 H Estimat Average Glucose Hemoglobin A1c % Osmolality Calcium 8.9 Total Bilirubin Direct Bilirubin AST ALT Alkaline Phosphatase Ammonia B-Natriuretic Peptide 4244 H Total Protein Albumin Urine Color Yellow Urine Appearance Clear Urine pH 7.5 Ur Specific [place] 1.010 Urine Protein Trace Urine Glucose (UA) Negative Urine Ketones Negative Urine Blood Trace H Urine Nitrite Negative Ur Leukocyte Esterase Negative Urine RBC 6-10 H Urine WBC 0-5 Ur Squamous Epith Cells 0-2 Urine Bacteria None Seen Hyaline Casts 3-5 Salicylates Urine Opiates Screen Not Detected Ur Buprenorphine Scrn Not Detected Ur Oxycodone Screen Not Detected Urine Methadone Screen Not Detected Urine Fentanyl Screen Not Detected Acetaminophen Ur Barbiturates Screen Not Detected Ur Phencyclidine Scrn Not Detected Ur Amphetamines Screen Not Detected U Benzodiazepines Scrn POSITIVE H Urine Cocaine Screen Not Detected U Marijuana (THC) Screen Not Detected Ethyl Alcohol Urine Ethyl Alcohol Cancelled Progress Note: A&P Assessment and plan (1) Severe aortic valve stenosis: Status: Acute Plan [age] year gentleman with severe aortic valve stenosis and mild cardiomyopathy with EF 40 45%. Moderate pulmonary hypertension was noted previously. Presenting with confusion and elevated BNP. Did not appear to be significantly volume overloaded. I think he can continue his home dose of Lasix 40 mg twice a day along with spironolactone. Significant psychiatric issues currently with delirium requiring antipsychotics. He was previously advised to see Dr. Jacques Miller but he has not made any appointments. As he gets discharged he should go see him. I am not sure whether he has insight currently due to delirium. Thank you for allowing me to participate in the care of your patient. Please feel free to contact me if you have any questions. Time Spent With Patient Time: Total time managing care of this patient today ____ minutes. Progress Note: Quality Stroke Does the patient have a stroke diagnosis?: No Procedures Date of Service Date of Service: 04/07/25
--- NOTE | 2025-04-07 16:22 | P.PNIM_ITS ---
Subjective Subjective Date of Service: 04/07/25 Interval History: Delirum vs toxic metabolic encepahlopathy Review of Systems mental status improving less agitated refuses intermitent meds,food .encouraged for po intake /hydration Review of Systems: Yes all other systems are reviewed and are negative Physical Exam 2 Exam: Exam: Appearance: more awake ,answers few questions ,aox2. cvs: rrr, [id number] . res: air entry diminshed . abd: no rebound or guarding ,nt, bs present. ext pulses present , no cyanosis . neuro: moving all ext Vital Signs: Vital Signs: Last Vital Signs Temp 97.4 F 04/07/25 15:04 Pulse 82 04/07/25 15:04 Resp 18 04/07/25 15:04 BP 103/52 L 04/07/25 15:04 Pulse Ox 96 04/07/25 15:04 O2 Del Method Room Air 04/07/25 15:04 O2 Flow Rate 2 04/07/25 07:16 BMI result Body Mass Index 26.0 Objective Data Active Medications Acetaminophen (Acetaminophen 325 Mg Tablet) 975 mg PO Q6H PRN PRN Reason: Pain, Mild 1-3,fever,headache Last Admin: 04/07/25 12:37 Dose: 975 mg Documented By: LOPEZ Aspirin (Aspirin Enteric Coated 81 Mg Tablet.Dr) 81 mg PO DAILY [facility] Last Admin: 04/07/25 09:01 Dose: 81 mg Documented By: LOPEZ Bisacodyl (Bisacodyl 10 Mg Supp.Rect) 10 mg [place] BEDTIME [facility] Last Admin: 04/06/25 21:15 Dose: Not Given Documented By: GUY Non-Admin Reason: Patient Refused Calcium Carbonate (Calcium Carbonate 750 Mg Tab.Chew) 750 mg PO Q4H PRN PRN Reason: Heartburn Docusate Sodium (Docusate Sodium 100 Mg Capsule) 100 mg PO BID [facility] Last Admin: 04/07/25 09:01 Dose: 100 mg Documented By: LOPEZ Furosemide (Furosemide 40 Mg Tablet) 40 mg PO BID@0900,1800 [facility]; Protocol Heparin Sodium (Porcine) (Heparin Sodium,Porcine 5,000 Unit/Ml Vial) 5,000 unit SUBCUT Q12H [facility] Last Admin: 04/07/25 05:36 Dose: 5,000 unit Documented By: GUY Lidocaine (Lidocaine 4 % Patch Adh..Patch) 1 patch TRANSDERMA DAILY [facility]; Protocol Last Admin: 04/07/25 12:38 Dose: 1 patch Documented By: LOPEZ Magnesium Hydroxide (Milk Of Magnesia 30 Ml Oral.Susp) 30 ml PO DAILY PRN PRN Reason: Constipation Melatonin (Melatonin 3 Mg Tablet) 6 mg PO BEDTIME PRN PRN Reason: Insomnia Polyethylene Glycol (Polyethylene Glycol 3350 17 Gm Powd.Pack) 17 gm PO DAILY [facility] Last Admin: 04/07/25 09:01 Dose: 17 gm Documented By: LOPEZ Quetiapine Fumarate (Quetiapine Fumarate 25 Mg Tablet) 25 mg PO BID PRN PRN Reason: Anxiety Senna (Sennosides 8.6 Mg Tablet) 8.6 mg PO BEDTIME [facility] Last Admin: 04/06/25 21:15 Dose: Not Given Documented By: GUY Non-Admin Reason: Patient Refused Sodium Chloride (0.9 % Sodium Chloride Flush 3 Ml Syringe) 3 ml IVFLUSH QSHIFT [facility] Last Admin: 04/07/25 09:01 Dose: 3 ml Documented By: LOPEZ Labs 04/06/25 05:08 04/07/25 08:18 Labs: Laboratory Results - last 24 hr 04/06/25 04/06/25 04/06/25 05:08 20:10 20:20 VBG pH 7.50 H VBG pCO2 38 VBG pO2 37 VBG HCO3 30 H VBG O2 Saturation 50.0 VBG Base Excess 6.8 Anion Gap 20 Estim Creat Clear Calc 23.0 Estimated GFR 30 Random Glucose 149 H Estimat Average Glucose 117 Hemoglobin A1c % 5.7 Osmolality 309 H Calcium 8.9 Total Bilirubin 1.7 H Direct Bilirubin 0.6 H AST 47 H ALT 30 Alkaline Phosphatase 85 Ammonia 19 B-Natriuretic Peptide Total Protein 7.0 Albumin 3.8 Urine Color Urine Appearance Urine pH Ur Specific [place] Urine Protein Urine Glucose (UA) Urine Ketones Urine Blood Urine Nitrite Ur Leukocyte Esterase Urine RBC Urine WBC Ur Squamous Epith Cells Urine Bacteria Hyaline Casts Salicylates < 5.0 L Urine Opiates Screen Ur Buprenorphine Scrn Ur Oxycodone Screen Urine Methadone Screen Urine Fentanyl Screen Acetaminophen < 3 Ur Barbiturates Screen Ur Phencyclidine Scrn Ur Amphetamines Screen U Benzodiazepines Scrn Urine Cocaine Screen U Marijuana (THC) Screen Ethyl Alcohol < 10 Urine Ethyl Alcohol 04/06/25 04/07/25 21:00 08:18 VBG pH VBG pCO2 VBG pO2 VBG HCO3 VBG O2 Saturation VBG Base Excess Anion Gap 17 Estim Creat Clear Calc 22.3 Estimated GFR 29 Random Glucose 130 H Estimat Average Glucose Hemoglobin A1c % Osmolality Calcium 8.9 Total Bilirubin Direct Bilirubin AST ALT Alkaline Phosphatase Ammonia B-Natriuretic Peptide 4244 H Total Protein Albumin Urine Color Yellow Urine Appearance Clear Urine pH 7.5 Ur Specific [place] 1.010 Urine Protein Trace Urine Glucose (UA) Negative Urine Ketones Negative Urine Blood Trace H Urine Nitrite Negative Ur Leukocyte Esterase Negative Urine RBC 6-10 H Urine WBC 0-5 Ur Squamous Epith Cells 0-2 Urine Bacteria None Seen Hyaline Casts 3-5 Salicylates Urine Opiates Screen Not Detected Ur Buprenorphine Scrn Not Detected Ur Oxycodone Screen Not Detected Urine Methadone Screen Not Detected Urine Fentanyl Screen Not Detected Acetaminophen Ur Barbiturates Screen Not Detected Ur Phencyclidine Scrn Not Detected Ur Amphetamines Screen Not Detected U Benzodiazepines Scrn POSITIVE H Urine Cocaine Screen Not Detected U Marijuana (THC) Screen Not Detected Ethyl Alcohol Urine Ethyl Alcohol Cancelled Assessment and Plan (1) New onset of congestive heart failure: Status: Inactive Assessment and Plan: 84-year-old man admitted with acute congestive heart failure and constipation. Very fixated on going home to get something, he reported it was a ?secret?. Delirum vs toxic metabolic encepahlopathy: Due to overall medical condition(ROBY, sedative medication,? Question cognitive impairment). Mental status is improving, CT head also added d/w daughter -? if any substance/intake(daughter says -does not have any specific substance ):tylenol/salisalate levels,etoh levels , utox-negative, ammonia normal. Sats are also fine Supportive care, avoid sedative medications including benzodiazepine, sitter if needed we will use soft restraints. discussed with icu -he gets very drowsy with benzo's ,his qtc slightly prolonged -avoid sedative/antipsycotics meds . Staff is aware to encouraged for eating and hydration Acute congestive heart failure Elevated troponin-Likely secondary to acute congestive heart failure ef 40-45% , severe aortic stensosis . sats in 96% on room air BNP [id number] Monitor on telemetry plan: recieved iv lasix. 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 Patient is very difficult due to agitation does not let us do any labs, telemetry monitoring. ongoing need:Delirum vs toxic metabolic encepahlopathy, CHF, ROBY: Need close monitoring of mental status, workup, monitoring electrolytes and renal function. Also p.o. intake poor. Quality Stroke Does the patient have a stroke diagnosis?: No VTE Prior VTE?: No VTE Risk Level:: Medical - moderate - high VTE Device Contraindication: Treatment Not Indicated VTE Drug Contraindication: N/A - Med Ordered
--- NOTE | 2025-04-07 18:10 | PC.NURSE ---
Addendum entered by Lynn Barron RN 04/07/25 18:52: straight cath finished at 1845 with 480ml of CYU. pt is dt void at [id number] 04/08/25. flomax added in by Original Note: pt has been having insufficient urine output dt drowsiness and difficulty voiding. bladder scan w 489ml, placed pt on bedside commode, no urine noted. pt was going for head CT. straight cath ordered. will f/u when pt is backed.
[2025-04-07] MEDS: Albumin Human 25 % 100 ML 133.33 ML IV ×2 (20:44→22:00)
[2025-04-08] VITALS: BP 86/50; PULSE 86; RESP 16; TEMP 36.6; O2SAT 96
[2025-04-08 01:04] VITALS: BP 101/53; PULSE 83
[2025-04-08 04:00] VITALS: BP 103/51; PULSE 87; RESP 20; TEMP 36.5; O2SAT 97
[2025-04-08 07:07] VITALS: BP 97/53; PULSE 81; RESP 16; TEMP 36.8; O2SAT 97
[2025-04-08] MEDS: Aspirin Enteric Coated 81 MG TABLET.DR PO (08:22)
[2025-04-08] MEDS: 0.9 % Sodium Chloride Flush 3 ML SYRINGE IVFLUSH (08:22)
[2025-04-08] MEDS: Lidocaine 4 % Patch ADH..PATCH 1 PATCH TRANSDERMA (08:22)
[2025-04-08] MEDS: Albumin Human 25 % 100 ML 133.33 ML IV ×2 (08:52→11:13)
[2025-04-08 09:09] LABS: Anion Gap 14 (12-20); Blood Urea Nitrogen 62 mg/dL (9-16); Calcium 8.3 mg/dL (8.4-10.2); Carbon Dioxide 29 mmol/L (22-29); Chloride 99 mmol/L (96-108); Creatinine Clr Calc Pharmacy 26.0; Estimated Glomerular Filt Rate 34; Potassium 3.6 mmol/L (3.3-5.1); Sodium 138 mmol/L (135-145)
--- NOTE | 2025-04-08 10:17 | P.PNNP_ITS ---
Subjective Subjective Date of Service: 04/08/25 Interval history: Patient here with CHF, constipation, confusion. Following for ROBY. creatinine improving today, 1.87 from 2.18 yesterday. Most recent creatinine prior to hospitalization 1.4 Patient states he feels well at bedside. Remains confused, reports he is frustrated he does not have his own clothes. States he feels well otherwise- denies chest pain, shortness of breath. He is sitting in recliner. 880mL of urine recorded yesterday. Physical Exam 2 Vital Signs: Vital Signs: Last Vital Signs Temp 98.2 F 04/08/25 07:07 Pulse 81 04/08/25 07:07 Resp 16 04/08/25 07:07 BP 97/53 L 04/08/25 07:07 Pulse Ox 97 04/08/25 07:07 O2 Del Method Room Air 04/08/25 07:07 O2 Flow Rate 2 04/07/25 07:16 BMI result Body Mass Index 26.0 Const: General: alert, awake and confusion Orientation/consciousness: c onfusion Resp: Effort & Inspection: normal respiratory effort and able to speak in complete sentences Auscultation: diminished lung sounds Cardio: Rate: regular rate Rhythm: regular rhythm Heart sounds: S1 normal heart sound present and S2 normal heart sound present GI: Palpation (GI): Soft to palpation and nontender : General: Yes no CVA tenderness Back/Spine/Pelvis: Back: no CVA tenderness Skin: Rashes: no rashes Neuro: General: confusion Extrem: General: Yes edema (+1 BLE edema) Objective Data Labs 04/06/25 05:08 04/08/25 08:19 Labs: Laboratory Results - last 24 hr 04/08/25 04/08/25 08:19 08:36 Sodium 138 Cancelled Potassium 3.6 Cancelled Chloride 99 Cancelled Carbon Dioxide 29 Cancelled Anion Gap 14 Cancelled BUN 62 H Cancelled Creatinine 1.87 H Cancelled Estim Creat Clear Calc 26.0 Cancelled Estimated GFR 34 Cancelled Random Glucose 113 Cancelled Calcium 8.3 L D Cancelled Procedures Date of Service Date of Service: 04/08/25 Assessment & Plan Assessment and plan (1) CHF (congestive heart failure): Status: Acute (2) ROBY (acute kidney injury): Status: Acute Plan ROBY likely cardiorenal syndrome - improving Patient remains hypervolemic. Given improvement in creatinine and patient respiratory status has improved, should continue current diuretic regimen recommend avoiding nephrotoxins recommend daily electrolyte and renal function studies recommend close I&O monitoring, daily weights Continue supportive care Time Spent With Patient Time: Total time managing care of this patient today ____ minutes. Progress Note: Quality Stroke Does the patient have a stroke diagnosis?: No
[2025-04-08 11:07] VITALS: BP 91/46; PULSE 89; RESP 16; TEMP 36.8; O2SAT 97
--- NOTE | 2025-04-08 13:03 | MHC.CM.PN ---
DC planning in process. rec. home care services for pt., pt. does not have a PCP, he was advised after last hosp. admission to get a PCP, he did not follow up. CARY got him an appt. with Charley Felix for April 14, and messaged her to refer for VNA services. CARY spoke with dtr Tanya, she wants pt to go home. CARY called friend / neighbor Poonam, she said that she cannot assist pt. anymore because she is taking a risk, the home is unsafe, she said it is a hoarding situation and the pt.s is at risk for falling, and she cannot take resposibility for her. MD will order capacity eval for pt. Referral submitted to [facility] for services in the home. CM to continue to assist with DC plan.
[2025-04-08 15:09] VITALS: BP 113/53; PULSE 89; RESP 18; TEMP 36.2; O2SAT 99
--- NOTE | 2025-04-08 16:37 | P.DS_ITS ---
DS: Providers Provider Date of Service: 04/08/25 Date of admission: 04/05/25 15:59 Date of discharge: 04/08/25 Primary care physician: None Physician Consults: 04/05/25 16:16 Consult to Cardiology Routine Consulting Provider: [facility] Reason for consultation: chf 04/06/25 08:33 Consult to Psychiatry Stat Consulting Provider: [facility] Psych Covering Reason for consultation: severe anxiety/behavioural disturbances/capacity Has provider been notified: No 04/07/25 11:34 Consult to Nephrology Routine Consulting Provider: [facility] Reason for consultation: roby on ckd Has provider been notified: No 04/08/25 12:59 Consult to Psychiatry Routine Consulting Provider: [facility] Psych Covering Reason for consultation: Capacity's eval Has provider been notified: No DS: Diagnosis Discharge Diagnosis (1) CHF (congestive heart failure): Status: Acute (2) ROBY (acute kidney injury): Status: Acute DS: Summary Hospital Course Hospital Course: HPI:84-year-old man with a history of congestive heart failure with reduced ejection fraction presenting to the ER with severe constipation, rectal pain and likely heart failure. Apparently the family had an argument with her daughter and it was very stressful. She had recently come from [place] and this is when his symptoms started. At home he had tried preparation H and he is unable to pass gas as well. Apparently he had also not been eating very well. He also reports that he can not lay flat. They do not have any other family other than a neighbor who watches out for them who did come to the hospital to bring him a fan as he requested. He seems like he is somewhat confused and repeating things over and over again. In the ER, his BNP is over 3000, significant leg edema, creatinine 1.94, KUB showing no bowel obstruction but moderate to large volume of fecal material. He was given lactulose, fleets enema, Lasix and Mag citrate. He will be admitted for further management and treatment of acute CHF and constipation. Hospital course: 84-year-old man admitted with acute congestive heart failure and constipation. Very fixated on going home to get something, he reported it was a ?secret?: Patient was admitted for CHF exacerbation-given IV Lasix and echo was done: 40- 45% ,severe aortic stenosis: Patient seems to be improved with IV Lasix, considering severe aortic stenosis and borderline blood pressure Lasix adjusted to 40 mg daily. Patient seen by Cardiology: He was previously advised to see Dr. Jacques Miller but he has not made any appointments. Acute toxic metabolic encephalopathy likely multifactorial( ROBY, sedative medication,? possible mild cognitive impairment):seems to be improved significantly, seen by psych also. Monitor CMP, CBC outpatient-can be done while pcp appointment. d/w plan by corrections caseworker ,myself and psych with patient and his daughter in detail: Decided for going home, home situation is not great either, so protective Services is are notified to follow-up per casino runner. as per psych -patient has capacity In addition casino runner also arranged-PCP appointment (end of this month). plan: chf -continue Lasix, spironolactone Mild urinary retention-continue flomax , urination is fine. Constipation: Continue laxatives as above. ROBY on CKD: Improving, monitor BMP outpatient Mild elevated LFTs: Possible in the setting of CHF, monitor outpatient and further workup outpatient. intermitent agitation:d/w psych-recommended to continue 12.5 mg b.i.d. p.r.n. Seroquel. Above management discussed with the patient and his daughter Ms. Martínez in multiple times-they both understand and in agreement with the above plan, time spent 50 minute, all questions answered. Staff was present during conversation. Time Attestation Total time managing care of this patient today: 40 mintues. Discharge Coordination Time (in mins): 40 Quality: Safe Use of Opioids Does Pt have an Active Cancer Diagnosis on the Problem List?: No Quality: Stroke Does the patient have a stroke diagnosis?: No Physical Exam Exam: Exam: Appearance: Alert.? Oriented X3.? cvs: rrr, [id number] , no murmur res: clear to auscultation ,no rhonchii or wheezing abd: no rebound or guarding ,nt, bs present. ext pulses present , no cyanosis . neuro: axo3 , nonfocal. Vital Signs: Vital Signs: Last Vital Signs Temp 97.2 F 04/08/25 15:09 Pulse 89 04/08/25 15:09 Resp 18 04/08/25 15:09 BP 113/53 L 04/08/25 15:09 Pulse Ox 99 04/08/25 15:09 O2 Del Method Room Air 04/08/25 15:09 O2 Flow Rate 2 04/07/25 07:16 BMI result Body Mass Index 26.0 DS: Data Data Completed and Pending Labs on day of discharge: Laboratory Results - last 24 hr 04/08/25 04/08/25 08:19 08:36 Sodium 138 Cancelled Potassium 3.6 Cancelled Chloride 99 Cancelled Carbon Dioxide 29 Cancelled Anion Gap 14 Cancelled BUN 62 H Cancelled Creatinine 1.87 H Cancelled Estim Creat Clear Calc 26.0 Cancelled Estimated GFR 34 Cancelled Random Glucose 113 Cancelled Calcium 8.3 L D Cancelled Imaging Chest x-ray: Radiologist's impression: ITS Impressions KUB X-Ray 04/05/25 10:41 IMPRESSION: 1. No evidence of bowel obstruction. 2. Moderate to large volume of fecal material throughout the colon and rectum, in keeping with obstipation. 3. Interstitial changes in the lung bases, most likely on the basis of interstitial edema. Electronically signed by: Melecio Lopez MD 04/05/2025 11:52 AM EDT Discharge Plan Discharge Anticipated Discharge Date/Time: 04/08/25 11:47 Patient Disposition: Home, Self-Care Discharge Diagnosis: chf ,aortic stenosis Referrals: Misael Kapoor MD [Physician, Nephrology] - 1 Week Physician,Jarred [Primary Care Provider, Medical] - 1 Week Discharge Medications: New polyethylene glycol 3350 17 gram Powder In Packet 17 g PO DAILY PRN (Reason: constipation) Qty: 30 0RF tamsulosin 0.4 mg Capsule 0.4 mg PO BEDTIME Qty: 30 0RF docusate sodium 100 mg Capsule 100 mg PO BID Qty: 60 0RF quetiapine 25 mg Tablet 12.5 mg PO BID PRN (Reason: Anxiety) Qty: 30 0RF Continued aspirin 81 mg capsule 81 mg PO DAILY Qty: 180 0RF spironolactone 25 mg Tablet 12.5 mg PO DAILY Qty: 90 0RF Protocol: Hold for SBP< HOLD for SBP < : 90 Changed furosemide [Lasix] 40 mg tablet 40 mg PO DAILY Qty: 180 0RF Discharge Orders: Discharge Order (Routine); Ordered 04/08/25 Ordered By: Daphne Hare Diet: Advance to usual diet Activity on Discharge: As tolerated Stand Alone Forms: Patient Portal Discharge page Print Language: Japanese Care Plan Goals: chf -continue Lasix, spironolactone Mild urinary retention-continue flomax , urination is fine. Constipation: Continue laxatives as above. ROBY on CKD: Improving, monitor BMP outpatient Mild elevated LFTs: Possible in the setting of CHF, monitor outpatient and further workup outpatient. intermitent agitation:d/w psych-recommended to continue 12.5 mg b.i.d. p.r.n. Seroquel. Health Concerns: as above. Plan of Treatment: as above. Assessment: as above. Discharge Date/Time: 04/08/25 18:11
--- NOTE | 2025-04-08 16:37 | MHC.CM.PN ---
Pt. has been medically cleared to ID, he will go home via Lyft. referral into [facility] for home care services and new PCP appt. set up for him for April 13 at 3:30 with Charley Felix and a request into to this provider to refer for VNA services.
--- NOTE | 2025-04-08 16:52 | PM.PSYCN ---
History of Present Illness Date of Service: 04/08/25 Chief Complaint: CHF Reason for Consult: Capacity Requesting physician: Daphne Hare Discussed with referring provider: Yes Sources of Information: patient interviewed, chart reviewed and crisis/core team assessment reviewed HPI Narrative: HPI: Per Medical provider note: Patient is a 84-year-old man with a history of congestive heart failure with reduced ejection fraction presenting to the ER with severe constipation, rectal pain and likely heart failure. Apparently the family had an argument with her daughter and it was very stressful. She had recently come from [place] and this is when his symptoms started. At home he had tried preparation H and he is unable to pass gas as well. Apparently he had also not been eating very well. He also reports that he can not lay flat. They do not have any other family other than a neighbor who watches out for them who did come to the hospital to bring him a fan as he requested. He seems like he is somewhat confused and repeating things over and over again. In the ER, his BNP is over 3000, significant leg edema, creatinine 1.94, KUB showing no bowel obstruction but moderate to large volume of fecal material. He was given lactulose, fleets enema, Lasix and Mag citrate. He will be admitted for further management and treatment of acute CHF and constipation. Past Psychiatric History: Not discuss refer to attending medical team Personal & Social History: Lvie at home with . Selena jeffries who lvies in [place] and [place]. He has no VNA or home health for elderly services at this current time. Report that he and his cook and helo each other at home in term of meal prepare and ADL's Review of Systems Review of Systems Constitutional: Denies fatigue and Denies fever(s) Cardiovascular: Denies chest pain and Denies dyspnea Respiratory: Denies dyspnea Gastrointestinal: Denies abdominal pain Psychiatric: no SI statement made/expressed Endocrine: Denies fatigue [facility] Medical History (Updated 04/08/25 @ 17:10 by Rosemary Lynch NP) Severe aortic valve stenosis New onset of congestive heart failure CHF exacerbation Family History: Live at home with Social History: Live at home with with limited help from children as two of his daughters live far away Substance History: Denies Trauma History: Not discussed Diagnostics Vital Signs (24Hr): Vital Signs - 24 hr 04/07/25 20:00 04/08/25 00:00 04/08/25 01:04 Temperature 97.5 F 97.8 F Pulse Rate 85 86 83 Respiratory Rate 16 16 Blood Pressure 86/38 L 86/50 L 101/53 L Pulse Oximetry 99 96 Oxygen Delivery Method Room Air Room Air 04/08/25 04:00 04/08/25 07:07 04/08/25 11:07 Temperature 97.7 F 98.2 F 98.3 F Pulse Rate 87 81 89 Respiratory Rate 20 16 16 Blood Pressure 103/51 L 97/53 L 91/46 L Pulse Oximetry 97 97 97 Oxygen Delivery Method Room Air Room Air Room Air 04/08/25 15:09 Temperature 97.2 F Pulse Rate 89 Respiratory Rate 18 Blood Pressure 113/53 L Pulse Oximetry 99 Oxygen Delivery Method Room Air BMI result Body Mass Index 26.0 Labs 04/06/25 05:08 04/08/25 08:19 Labs: Laboratory Results - last 48 hr 04/06/25 04/06/25 04/06/25 05:08 20:10 20:20 VBG pH 7.50 H VBG pCO2 38 VBG pO2 37 VBG HCO3 30 H VBG O2 Saturation 50.0 VBG Base Excess 6.8 Sodium 140 Potassium 4.1 Chloride 99 Carbon Dioxide 25 Anion Gap 20 BUN 58 H Creatinine 2.11 H Estim Creat Clear Calc 23.0 Estimated GFR 30 Random Glucose 149 H Estimat Average Glucose 117 Hemoglobin A1c % 5.7 Osmolality 309 H Calcium 8.9 Total Bilirubin 1.7 H Direct Bilirubin 0.6 H AST 47 H ALT 30 Alkaline Phosphatase 85 Ammonia 19 B-Natriuretic Peptide Total Protein 7.0 Albumin 3.8 Urine Color Urine Appearance Urine pH Ur Specific [place] Urine Protein Urine Glucose (UA) Urine Ketones Urine Blood Urine Nitrite Ur Leukocyte Esterase Urine RBC Urine WBC Ur Squamous Epith Cells Urine Bacteria Hyaline Casts Salicylates < 5.0 L Urine Opiates Screen Ur Buprenorphine Scrn Ur Oxycodone Screen Urine Methadone Screen Urine Fentanyl Screen Acetaminophen < 3 Ur Barbiturates Screen Ur Phencyclidine Scrn Ur Amphetamines Screen U Benzodiazepines Scrn Urine Cocaine Screen U Marijuana (THC) Screen Ethyl Alcohol < 10 Urine Ethyl Alcohol 04/06/25 04/07/25 04/08/25 21:00 08:18 08:19 VBG pH VBG pCO2 VBG pO2 VBG HCO3 VBG O2 Saturation VBG Base Excess Sodium 141 138 Potassium 4.5 3.6 Chloride 100 99 Carbon Dioxide 29 29 Anion Gap 17 14 BUN 66 H 62 H Creatinine 2.18 H 1.87 H Estim Creat Clear Calc 22.3 26.0 Estimated GFR 29 34 Random Glucose 130 H 113 Estimat Average Glucose Hemoglobin A1c % Osmolality Calcium 8.9 8.3 L D Total Bilirubin Direct Bilirubin AST ALT Alkaline Phosphatase Ammonia B-Natriuretic Peptide 4244 H Total Protein Albumin Urine Color Yellow Urine Appearance Clear Urine pH 7.5 Ur Specific [place] 1.010 Urine Protein Trace Urine Glucose (UA) Negative Urine Ketones Negative Urine Blood Trace H Urine Nitrite Negative Ur Leukocyte Esterase Negative Urine RBC 6-10 H Urine WBC 0-5 Ur Squamous Epith Cells 0-2 Urine Bacteria None Seen Hyaline Casts 3-5 Salicylates Urine Opiates Screen Not Detected Ur Buprenorphine Scrn Not Detected Ur Oxycodone Screen Not Detected Urine Methadone Screen Not Detected Urine Fentanyl Screen Not Detected Acetaminophen Ur Barbiturates Screen Not Detected Ur Phencyclidine Scrn Not Detected Ur Amphetamines Screen Not Detected U Benzodiazepines Scrn POSITIVE H Urine Cocaine Screen Not Detected U Marijuana (THC) Screen Not Detected Ethyl Alcohol Urine Ethyl Alcohol Cancelled 04/08/25 08:36 VBG pH VBG pCO2 VBG pO2 VBG HCO3 VBG O2 Saturation VBG Base Excess Sodium Cancelled Potassium Cancelled Chloride Cancelled Carbon Dioxide Cancelled Anion Gap Cancelled BUN Cancelled Creatinine Cancelled Estim Creat Clear Calc Cancelled Estimated GFR Cancelled Random Glucose Cancelled Estimat Average Glucose Hemoglobin A1c % Osmolality Calcium Cancelled Total Bilirubin Direct Bilirubin AST ALT Alkaline Phosphatase Ammonia B-Natriuretic Peptide Total Protein Albumin Urine Color Urine Appearance Urine pH Ur Specific [place] Urine Protein Urine Glucose (UA) Urine Ketones Urine Blood Urine Nitrite Ur Leukocyte Esterase Urine RBC Urine WBC Ur Squamous Epith Cells Urine Bacteria Hyaline Casts Salicylates Urine Opiates Screen Ur Buprenorphine Scrn Ur Oxycodone Screen Urine Methadone Screen Urine Fentanyl Screen Acetaminophen Ur Barbiturates Screen Ur Phencyclidine Scrn Ur Amphetamines Screen U Benzodiazepines Scrn Urine Cocaine Screen U Marijuana (THC) Screen Ethyl Alcohol Urine Ethyl Alcohol Imaging Radiology Impressions: ITS Impressions KUB X-Ray 04/05/25 10:41 IMPRESSION: 1. No evidence of bowel obstruction. 2. Moderate to large volume of fecal material throughout the colon and rectum, in keeping with obstipation. 3. Interstitial changes in the lung bases, most likely on the basis of interstitial edema. Electronically signed by: Melecio Lopez MD 04/05/2025 11:52 AM EDT RP Mental Status Exam Mental Status Exam Narrative: Patient is seen in his room, sitting up in bed, wearing hospital attire, talking to this provider calmly. Coherence. He is A+Ox3. No agitation, no irritable mood. Coherence. Thought process and thought content probably back to baseline and age appropriate. No safety concerns express. He is aware and happy with PCP, VNA, and elderly services referrals for aftercare. Happy that he is able to get home. Rationale how he can get home and he has money to pay for the ride from his pension if hospital does not provide ride. Medications Medications Current Medications Acetaminophen (Acetaminophen 325 Mg Tablet) 975 mg PO Q6H PRN PRN Reason: Pain, Mild 1-3,fever,headache Last Admin: 04/07/25 12:37 Dose: 975 mg Aspirin (Aspirin Enteric Coated 81 Mg Tablet.) 81 mg PO DAILY [facility] Last Admin: 04/08/25 08:22 Dose: 81 mg Bisacodyl (Bisacodyl 10 Mg Supp.Rect) 10 mg ID BEDTIME [facility]IRE[facility] Last Admin: 04/07/25 20:44 Dose: Not Given Calcium Carbonate (Calcium Carbonate 750 Mg Tab.Chew) 750 mg PO Q4H PRN PRN Reason: Heartburn Docusate Sodium (Docusate Sodium 100 Mg Capsule) 100 mg PO BID [facility] Last Admin: 04/08/25 08:22 Dose: 100 mg Furosemide (Furosemide 40 Mg Tablet) 40 mg PO DAILY [facility]; Protocol Heparin Sodium (Porcine) (Heparin Sodium,Porcine 5,000 Unit/Ml Vial) 5,000 unit SUBCUT Q12H [facility] Last Admin: 04/08/25 05:53 Dose: 5,000 unit Lidocaine (Lidocaine 4 % Patch Adh..Patch) 1 patch TRANSDERMA DAILY ALIREZA; Protocol Last Admin: 04/08/25 08:22 Dose: 1 patch Magnesium Hydroxide (Milk Of Magnesia 30 Ml Oral.Susp) 30 ml PO DAILY PRN PRN Reason: Constipation Melatonin (Melatonin 3 Mg Tablet) 6 mg PO BEDTIME PRN PRN Reason: Insomnia Polyethylene Glycol (Polyethylene Glycol 3350 17 Gm Powd.Pack) 17 gm PO DAILY ALIRE[facility] Last Admin: 04/08/25 08:22 Dose: 17 gm Quetiapine Fumarate (Quetiapine Fumarate 25 Mg Tablet) 25 mg PO BID PRN PRN Reason: Anxiety Last Admin: 04/08/25 08:22 Dose: 25 mg Senna (Sennosides 8.6 Mg Tablet) 8.6 mg PO BEDTIME [facility] Last Admin: 04/07/25 20:44 Dose: 8.6 mg Sodium Chloride (0.9 % Sodium Chloride Flush 3 Ml Syringe) 3 ml IVFLUSH QSHIFT [facility] Last Admin: 04/08/25 08:22 Dose: 3 ml Tamsulosin HCl (Tamsulosin Hcl 0.4 Mg Capsule) 0.4 mg PO BEDTIME [facility] Last Admin: 04/07/25 20:44 Dose: 0.4 mg Allergies Allergies Allergy/AdvReac Type Severity Reaction Status Date / Time No Known Allergies (No Known Allergy Verified 04/05/25 10:27 Allergies*) Assessment & Plan Assessment & Plan (1) Disturbance in judgement: Status: Acute Code(s): R41.89 - Other symptoms and signs involving cognitive functions and awareness Plan HPI: Per Medical provider note: Patient is a 84-year-old man with a history of congestive heart failure with reduced ejection fraction presenting to the ER with severe constipation, rectal pain and likely heart failure. Apparently the family had an argument with her daughter and it was very stressful. She had recently come from [place] and this is when his symptoms started. At home he had tried preparation H and he is unable to pass gas as well. Apparently he had also not been eating very well. He also reports that he can not lay flat. They do not have any other family other than a neighbor who watches out for them who did come to the hospital to bring him a fan as he requested. He seems like he is somewhat confused and repeating things over and over again. In the ER, his BNP is over 3000, significant leg edema, creatinine 1.94, KUB showing no bowel obstruction but moderate to large volume of fecal material. He was given lactulose, fleets enema, Lasix and Mag citrate. He will be admitted for further management and treatment of acute CHF and constipation. This provider is familier with the case. Patient is much improve mentally and physchially compare to two days ago where this provider could not make any assessment with him d/t agitation and struggling, was agiated and kicking staff. Hower, today patient is A+Ox3. Calm, pleasant and cooperative. Mood is good, feeling better. He knows he is in the hospital, able to answers appropriable to questions being asked for capacity with the help of concrete smoother danuta of [place] language but he also understands Cymro as well. Memory intact and appropriate with age. He is able to reasoning, and capable of taking care of self at home. He is aware of appointment with PCP next week on Saturday04/13/25 with the address given by plumbing manager. Per CM note Pt. has been medically cleared to [place], he will go home via Lyft. referral into [facility] for home care services and new PCP appt. set up for him for April 13 at 3:30 with Charley Felix and a request into to this provider to refer for VNA services Patient has PT done and patient can resume activities Medical team to continue manage medical problems and medicaiton needs to send home with. Suggest to lower Seroquel down from 25 mg BID to 12.5mg. He has been offered in the hospital at 25mg, tolerate well for mood. Plan: Total time managing care of this patient today ____ minutes. Patient educated on: therapeutic strategies Informed Consent: understands
== END 2025-04-08 18:11 | disposition home or self-care (01) | DRG 291 ==
LOC: HO.ED 14:36 → HO.EDOVER 16:06 → HO.IMC 19:21 → HO.EDOVER 21:11 → HO.IMC 04-06 14:18
PROVIDERS: Nurse Practitioner Acute Care; Nurse Practitioner Family; Registered Nurse Community Health; Admitting Provider Internal Medicine; Emergency Provider Emergency Medicine; Visit Provider Internal Medicine
DX: I13.0 Hypertensive heart and chronic kidney disease with heart failure and stage 1 through stage 4 chronic kidney disease, or unspecified chronic kidney disease (principal); G92.8 Other toxic encephalopathy; I50.23 Acute on chronic systolic (congestive) heart failure; N17.9 Acute kidney failure, unspecified; F05 Delirium due to known physiological condition; I35.0 Nonrheumatic aortic (valve) stenosis; I27.20 Pulmonary hypertension, unspecified; D50.9 Iron deficiency anemia, unspecified; N18.32 Chronic kidney disease, stage 3b; K59.00 Constipation, unspecified; Z79.82 Long term (current) use of aspirin; Z79.899 Other long term (current) drug therapy
CPT/HCPCS: 36415; 70450; 74018; 76775; 80048; 80053; 80076; 80143; 80179; 80307; 81001; 82140; 82803; 83036; 83540; 83735; 83880; 83930; 84443; 84484; 85025; 85027; 93005; 97161; 97530; 99285; J1630; J1644; J1938; J2359; J3360; P9047

== ENCOUNTER → 2025-04-05 11:21 | Outpatient (BNV) | payer MEDICARE, MEDICAID, SELFPAY | PROVIDERS: Emergency Provider Emergency Medicine; Visit Provider Radiology Diagnostic Radiology | DX: K59.00 Constipation, unspecified (principal); R91.8 Other nonspecific abnormal finding of lung field | CPT/HCPCS: 74018 ==

== ENCOUNTER → 2025-04-05 14:32 | Outpatient (BNV) | payer MEDICARE, MEDICAID, SELFPAY | PROVIDERS: Admitting Provider Internal Medicine; Emergency Provider Emergency Medicine; Visit Provider Internal Medicine Cardiovascular Disease | DX: I49.1 Atrial premature depolarization (principal); I51.7 Cardiomegaly | CPT/HCPCS: 93010 ==

== ENCOUNTER 2025-04-05 15:59 | Outpatient (BNV) | payer MEDICARE, MEDICAID, SELFPAY | END 2025-04-06 14:32 | PROVIDERS: Admitting Provider Internal Medicine; Emergency Provider Emergency Medicine; Visit Provider Internal Medicine Cardiovascular Disease | DX: I48.91 Unspecified atrial fibrillation (principal); I51.7 Cardiomegaly | CPT/HCPCS: 93010 ==

== ENCOUNTER 2025-04-05 15:59 | Outpatient (BNV) | payer MEDICARE, MEDICAID, SELFPAY | END 2025-04-07 17:29 | PROVIDERS: Admitting Provider Internal Medicine; Emergency Provider Emergency Medicine; Visit Provider Radiology Neuroradiology | DX: G93.40 Encephalopathy, unspecified (principal); N28.1 Cyst of kidney, acquired | CPT/HCPCS: 70450 ==

== ENCOUNTER → 2025-04-05 15:59 | Outpatient (BNV) | payer MEDICARE, MEDICAID, SELFPAY | PROVIDERS: Admitting Provider Internal Medicine; Emergency Provider Emergency Medicine; Visit Provider Nurse Practitioner Psychiatric/Mental Health | DX: F41.9 Anxiety disorder, unspecified (principal); R41.89 Other symptoms and signs involving cognitive functions and awareness | CPT/HCPCS: 99232 ==

== ENCOUNTER → 2025-04-05 15:59 | Outpatient (BNV) | payer MEDICARE, MEDICAID, SELFPAY | PROVIDERS: Admitting Provider Internal Medicine; Emergency Provider Emergency Medicine; Visit Provider Nurse Practitioner Acute Care | DX: I50.23 Acute on chronic systolic (congestive) heart failure (principal); N17.9 Acute kidney failure, unspecified | CPT/HCPCS: 99223; 99231; 99232; 99239 ==

== ENCOUNTER → 2025-04-05 15:59 | Outpatient (BNV) | payer MEDICARE, MEDICAID, SELFPAY | PROVIDERS: Admitting Provider Internal Medicine; Emergency Provider Emergency Medicine; Visit Provider Internal Medicine Cardiovascular Disease | DX: I35.0 Nonrheumatic aortic (valve) stenosis (principal) | CPT/HCPCS: 99233 ==

== ENCOUNTER → 2025-04-05 15:59 | Outpatient (BNV) | payer MEDICARE, MEDICAID, SELFPAY | PROVIDERS: Admitting Provider Internal Medicine; Emergency Provider Emergency Medicine; Visit Provider Nurse Practitioner Family | DX: I50.23 Acute on chronic systolic (congestive) heart failure (principal); N17.9 Acute kidney failure, unspecified | CPT/HCPCS: 99222; 99232 ==

== ENCOUNTER 2025-04-09 13:32 | Emergency (ER) | payer MEDICARE, MEDICAID, SELFPAY ==
--- NOTE | 2025-04-09 13:41 | PC.RT ---
Pt came in via EMS as cardiac arrest. PT was intubated in the field and currently being bag valve ventilated by EMS. RT took over bag ventilation. ACLS level care was provided. TOD called by . Pt remains intubated.
[2025-04-09 13:52] LABS: Glucose, Whole Blood 113 mg/dL (60-115)
--- NOTE | 2025-04-09 13:56 | ED_ITS ---
HPI - CPR General Stated Complaint: cardiac arrest Time Seen by Provider: 04/09/25 13:44 Source: EMS Mode of arrival: EMS Limitations: other (Cardiac arrest) History of Present Illness ED Provider: Dr. Karlo Dickens HPI narrative: 84-year-old man with a history of congestive heart failure with reduced ejection fraction admitted to [facility] 04/03/2025 and discharged on 04/08/2025 with diagnosis of congestive heart failure and acute kidney injury. Patient was treated with IV Lasix. Echocardiogram revealed EF of 40-45% with severe aortic stenosis. The patient's was here in the emergency department in the overflow unit and was being discharged home. The patient's was notified and he was going to be home to receive the patient. When the [facility] ambulance crew arrived with the patient's , they found the patient in a sitting position on the stairs slumped over and unresponsive. Initial rhythm was ventricular fibrillation and the patient received 2 fibula shock. The patient then went into pulseless electrical activity. Patient was intubated, IO and IV lines were established by the paramedics and the patient was given CPR with the Pasha device. Paramedics gave 6 rounds of epinephrine and the resuscitation lasted for proximally 48 minutes prior to them arriving in the emergency department. The patient's initial rhythm in the ED was asystole. CPR was continued with the Pasha device. Patient had breath sounds that were symmetric bilaterally with bag-valve ventilation through the ET tube. Patient was given 2 doses of epinephrine and at the 2nd pulse and rhythm check the patient was still asystolic. The resuscitation was stopped and the patient was pronounced at 13:37 hours. Related Data Previous Rx's ?Medication ?Instructions ?Recorded aspirin 81 mg capsule 81 mg PO DAILY #180 caps spironolactone 25 mg tablet 12.5 mg PO DAILY #90 tabs 02/01/25 docusate sodium 100 mg capsule 100 mg PO BID #60 caps 04/08/25 furosemide 40 mg tablet (Lasix) 40 mg PO DAILY #180 ta bs 04/08/25 polyethylene glycol 3350 17 gram 17 g PO DAILY PRN con stipation #30 04/08/25 oral powder packet ea quetiapine 25 mg tablet 12.5 mg (1/2 x 25 mg) PO BID PRN 04/08/25 Anxiety #30 tabs tamsulosin 0.4 mg capsule 0.4 mg PO BEDTIME #30 caps 0 04/08/25 Allergies Allergy/AdvReac Type Severity Reaction Status Date / Time No Known Allergies (No Known Allergy Verified 04/05/25 10:27 Allergies*) [facility] Past Medical History Medical History (Updated 04/09/25 @ 14:33 by Karlo Dickens MD) Severe aortic valve stenosis New onset of congestive heart failure CHF exacerbation Social History Social History Household Members: Spouse Household Members Other:: 2 Housing: House Do you presently have visiting nurse or other home services: No Comment: pt refusing alarms, camera in room Patient Tobacco Use Status: Tobacco use Unknown Advance Directives: No Advance Directives Information Provided: No service: No Physical Exam Vital Signs: Exam: General: Elderly male, intubated, pupils were dilated unresponsive Head: Normocephalic, atraumatic Lung: No spontaneous respirations, breath sounds symmetric with bag-valve respirations through the ETT Heart: No heart sounds Abdomen: No ecchymosis, abdomen distended Extremities: No spontaneous movement Medical Decision Making Medical Decision Making MDM Narrative: 84-year-old man with a history of congestive heart failure with reduced ejection fraction admitted to [facility] 04/03/2025 and discharged on 04/08/2025 with diagnosis of congestive heart failure and acute kidney injury. Patient was treated with IV Lasix. Echocardiogram revealed EF of 40-45% with severe aortic stenosis. The patient's was here in the emergency department in the overflow unit and was being discharged home. The patient's was notified and he was going to be home to receive the patient. When the [facility] ambulance crew arrived with the patient's , they found the patient in a sitting position on the stairs slumped over and unresponsive. Initial rhythm was ventricular fibrillation and the patient received 2 fibula shock. The patient then went into pulseless electrical activity. Patient was intubated, IO and IV lines were established by the paramedics and the patient was given CPR with the Pasha device. Paramedics gave 6 rounds of epinephrine and the resuscitation lasted for proximally 48 minutes prior to them arriving in the emergency department. The patient's initial rhythm in the ED was asystole. CPR was continued with the Pasha device. Patient had breath sounds that were symmetric bilaterally with bag-valve ventilation through the ET tube. Patient was given 2 doses of epinephrine and at the 2nd pulse and rhythm check the patient was still asystolic. The resuscitation was stopped and the patient was pronounced at 13:37 hours. Differential diagnosis: ?Includes but is not limited to myocardial infarction, myocardial ischemia, ventricular fibrillation arrest, Course: 14:08 The patient's arrest occurred outside. I did contact the emergency medical technician/driver and discuss the case with the emergency medical technician/driver solution specialist, Analy Morataya. She declined jurisdiction. soft work wrapper examiner I did discuss the patient's with his daughter, Tanya Finch. She came you reached at [phone]. She states she does not want her father to be an organ donor. I did tell her that she needs to contact a local home to make arrangements to have her father's body picked up from the hospital. Admission/Observation Consideration of admission/observation: Escalation of care including admission/observation considered (Yes) Lab Data Labs: Lab Results 04/09/ Range/Units 13:35 POC Glucose 113 (60-115) mg/dL Independent Historian Clinical information obtained from an independent historian. History obtained from or confirmed by: EMS Chronic Conditions Patient?s care impacted by: Other (Congestive heart failure with reduced EF, aortic stenosis) Critical Care Time Critical Care Time Critical Care Time: Yes Total Critical Care Time: 45 Attestation: Critical Care: The patient was critically ill with a high probability of imminent or life threatening deterioration. I spent greater than 30 minutes of discontinuous time evaluating the patient,delivering critical care at the bedside, discussing and evaluating pertinent data with consultants. Critical care time does not include time spent performing separately billable procedures or teaching. Total time spent performing critical care was 35 minutes. Discharge Plan Discharge Clinical Impression: Cardiac arrest with ventricular fibrillation, Patient Disposition:
--- NOTE | 2025-04-09 14:05 | PC.NURSE ---
[employer] called and spoke to Carly, case was declined reference number [id number]
--- NOTE | 2025-04-09 14:12 | MHC.EDTECH ---
VASCULAR PHYSICIAN CONTACTED BY THIS US PER ED PROVIDER VERBAL ORDER. DEMOGRAPHICS GIVEN TO VASCULAR PHYSICIAN'S OFFICE AND TRANSFERRED CALL TO ED PROVIDER. ED PROVIDER TELLS THIS US THAT VASCULAR PHYSICIAN'S OFFICE DECLINES THE CASE.
== END 2025-04-09 17:20 | disposition expired ==
PROVIDERS: Emergency Provider Emergency Medicine Emergency Medical Services
DX: I46.9 Cardiac arrest, cause unspecified (principal); Z79.899 Other long term (current) drug therapy
CPT/HCPCS: 82947; 96374; 99282; 99291; J0168